=== PATIENT | female | born 1965 | race Caucasian/White ===

== ENCOUNTER 2018-07-29 21:37 | Emergency (ER) | payer OTHER, SELFPAY ==
[2018-07-29] VITALS (15 sets, daily range): BP systolic 71–133; BP diastolic 45–92; PULSE 38–75; RESP 11–27; TEMP 35.4–36.8; O2SAT 94–100; BMI 31.6
--- NOTE | 2018-07-29 21:43 | EKG12_ITS ---
Test Reason : Blood Pressure : / mmHG Vent. Rate : 055 BPM Atrial Rate : 055 BPM P-R Int : 200 ms QRS Dur : 184 ms QT Int : 522 ms P-R-T Axes : 028 113 035 degrees QTc Int : 499 ms Sinus bradycardia Right bundle branch block Left posterior fascicular block Bifascicular block Abnormal ECG Confirmed by ANNY MALIN, GLENYS ([id number]), fan mail editor RENALDO MILLER ([id number]) on 07/31/2018 3:24:10 PM Referred By: BRY Confirmed By:GLENYS MCCORMICK MD
[2018-07-29] MEDS: Ondansetron 4 MG/2 ML Vial IV (21:48)
[2018-07-29] MEDS: 0.9% Normal Saline 1,000 ML 1000 ML IV ×4 (21:48→23:24)
[2018-07-29 21:56] LABS: Bedside Glucose 145 mg/dL (70-110)
[2018-07-29] MEDS: Etomidate 20 MG/10 ML Vial IV (22:04)
[2018-07-29] MEDS: Succinylcholine Chloride 200 MG/10 ML Vial 120 MG IV (22:04)
[2018-07-29] MEDS: DOPamine IV 800 MG/250 ML IV.SOLN. 8.081 MG IV (22:06)
[2018-07-29] MEDS: Sodium Bicarbonate 8.4% 50 ML Syringe 100 MEQ IV (22:09)
[2018-07-29 22:12] LABS: Absolute Lymphocyte Count 3.56 X10^3/ul (0.83-4.51); Absolute Neutrophil Count 6.9 X10^3/uL (2.0-7.7); Basophil# 0.04 X10^3/uL; Basophil% 0.3 % (0-1); Eosinophil# 0.11 X10^3/uL; Hematocrit 41.2 % (37-47); Hemoglobin 13.6 g/dl (12.0-15.0); Lymphocyte # 3.56 X10^3/ul (4.0); Lymphocyte % 30.8 % (19-41); Mean Corpuscular Hgb 26.9 pg (27.0-32.0); Mean Corpuscular Volume 81.4 fL (81-99); Mean Platelet Vol. 9.6 fl (6.2-12.0); Monocyte# 0.96 X10^3/uL; Monocyte% 8.3 % (0-10); Neutrophil # 6.87 X10^3/uL (2.7-7.7); Neutrophil % 59.3 % (47-70); Platelet Count 397 K/mm3 (150-450); RBC Distribution Width CV 13.4 % (11.6-14.6); RBC Distribution Width SD 39.8 fl (35.1-43.9); Red Blood Count 5.06 M/mm3 (4.2-5.4); White Blood Count 11.6 K/mm3 (4.4-11.0)
[2018-07-29] MEDS: Glucagon 1 MG/ML Syringe 5 MG IV (22:14)
[2018-07-29 22:15] LABS: ALB/GLOB Ratio 0.9 RATIO (0.9-2.4); AST(SGOT) 17 U/L (15-37); Alanine Aminotransfer ALT/SGPT 19 U/L (13-56); Albumin, Serum 3.9 g/dL (3.2-5.0); Alkaline Phosphatase 95 U/L (45-117); Anion Gap 9 (5-15); BUN 11 mg/dL (7-18); BUN/Creat Ratio 13.2 RATIO (10-20); Calcium,Total 8.7 mg/dL (8.5-10.1); Chloride 102 mmol/L (98-107); Creatinine, Serum 0.84 mg/dL (0.55-1.02); EST Glomerular Filtration Rate 76 mL/min (>60); Est Glom Filt Rate - Afr Amer 91 mL/min (>60); Estimated Creatinine Clearance 68.89 ml/min; Globulin 4.3 g/dL (2.2-4.2); Glucose 149 mg/dL (74-106); Potassium 3.7 mmol/L (3.5-5.1); Protein, Total 8.2 g/dL (6.4-8.2); Sodium Level 139 mmol/L (136-145)
[2018-07-29 22:16] LABS: Differential Indicated SCAN CRITERIA MET; POSITIVE COUNT NO; POSITIVE DIFFERENTIAL NO; POSITIVE MORPHOLOGY YES
--- NOTE | 2018-07-29 22:16 | NURSING ---
PRIOR TO INTUBATION PATIENT STATED IF I DON'T MAKE IT I WANT MY ORGANS DONATED
[2018-07-29 22:30] LABS: Differential Comment SCANNED
--- NOTE | 2018-07-29 22:30 | RAD_ITS ---
STUDY: X-RAY CHEST REASON FOR EXAM: Female, 53 years old. Overdose. TECHNIQUE: Single AP portable view of the chest. COMPARISON: 10/03/17. FINDINGS: Endotracheal tube terminates 5 cm above the papi. Right IJ line terminates in the upper SVC. No pneumothorax. Nasogastric tube terminates in the upper stomach. Bilateral low lung volumes. Soft tissue density in the medial upper right hemithorax suggests atelectasis but mass is not excluded. Diffuse increased density throughout the left lung and especially in the perihilar region consistent with atelectasis or infiltrate. No gross effusions. Normal size heart. Normal visualized pulmonary arteries. Normal visualized aortic arch and descending thoracic aorta. Normal visualized thoracic spine. Normal visualized ribs, clavicles, and shoulders. There is no demonstrated abnormality of the visualized soft tissue structures of the upper abdomen. RAD/Chest 1 View (Portable) IMPRESSION: Lines and tubes in satisfactory positions. Low lung volumes and bilateral pulmonary densities. Recommend further evaluation with CT scan. Electronically Signed: Sanjay Morris MD at 22:57 EDT , Service support ,
[2018-07-29] MEDS: Calcium Chloride 1 GM/10 ML Syringe IV (22:31)
[2018-07-29] MEDS: Activated Charcoal/Sorbitol 50 GM/240 ML BOT PO (22:39)
--- NOTE | 2018-07-29 22:41 | ED.RN ---
OG AND VENT PLACEMENT CONFIRMED BY XRAY
[2018-07-29] MEDS: Glucagon 1 MG/ML Syringe 4 MG IV (22:42)
[2018-07-29] MEDS: Atropine Sulfate 1 MG/10 ML Syringe IV (22:43)
[2018-07-29 22:46] LABS: Allen Test POS; Base Excess -4 mmol/L (-2 to +2); Bicarbonate 22.6 mmol/L (22-26); Blood Gas Specimen Type ART; FI02 60; Mode A-C; O2 Delivery Device Vent; PEEP 5; PO2 72 mmHG (75-100); RR 12; SITE R Brachial; SO2 93 % (95-99); Time Given 2235; Total Carbon Dioxide 24 mmol/L; Vt 450; pH 7.31 (7.35-7.45)
[2018-07-29] MEDS: Sodium Bicarbonate 8.4% 50 ML Syringe 50 MEQ IV (22:48)
[2018-07-29] MEDS: LORazepam 2 MG/ML Syringe IV (22:50)
[2018-07-29 22:59] LABS: Amphetamine Urine VISTA NEGATIVE (<1000 ng/mL); Barbiturate Urine VISTA NEGATIVE (< 200 ng/mL); Benzodiazepine Urine VISTA NEGATIVE (< 200 ng/mL); Cocaine Urine VISTA NEGATIVE (< 300 ng/mL); Ecstacy Urine VISTA POSITIVE (< 500 ng/mL); Methadone Urine VISTA NEGATIVE (< 300 ng/mL); PCP Urine VISTA NEGATIVE (< 25 ng/mL); THC Urine VISTA NEGATIVE (< 50 ng/mL); Vista UDS pH Range 6
[2018-07-29 23:03] LABS: Acetaminophen (Tylenol) Level < 2.0 ug/mL (10.0-30.0); Alcohol, Blood (Medical)-Serum < 3.0 mg/dL; Salicylate < 1.7 mg/dL (2.8-20.0)
[2018-07-29] MEDS: Dextrose 10%-Water 250 ML 10 ML IV (23:07)
--- NOTE | 2018-07-29 23:18 | NURSING ---
PATIENT IS CURRENTLY PACING AT [address] GEORGE.
--- NOTE | 2018-07-29 23:22 | NURSING ---
EPI INCREASED TO 5 MCG PER MIN THEN INCREASED TO 10 MCG/MIN PER DR. LONDONO.
[2018-07-29] MEDS: 0.9% Normal Saline 1,000 ML 999 ML IV ×2 (23:25→23:36)
--- NOTE | 2018-07-29 23:30 | ED.RN ---
PATIENT IS CURRENTLY NOT PACING PER DR. LONDONO REQUEST. PULSES ARE STILL PALPABLE IN THE WRIST AND GROIN.
--- NOTE | 2018-07-29 23:32 | ED.RN ---
WE WENT TO GET FAMILY THREE TIMES AND THEY WERE NOT IN THE WAITING ROOM.
--- NOTE | 2018-07-29 23:44 | NURSING ---
ANOTHER BLANKET APPLIED WITH THE BEAR HUGGER. TEMPERATURE 96.1
--- NOTE | 2018-07-29 23:52 | ED.RN ---
DR. LONDONO IS CURRENTLY AT THE BEDSIDE TALKING TO HER ABOUT TRANSFER. [facility] WONT TAKE HER SO WANTS HER TO GO TO [facility].
[2018-07-30] VITALS (11 sets, daily range): BP systolic 102–120; BP diastolic 68–83; PULSE 62–70; RESP 12–24; TEMP 35.6–37.2; O2SAT 97–100
--- NOTE | 2018-07-30 00:25 | ED.DCSUM_ITS ---
- ER Visit Summary Date of Service: 07/30/18 Chief Complaint: Overdose History of Present Illness: The patient is a [address] Bates. Patient reports that she is feeling depressed because her children are leaving the home and that impulsively she overdosed on propranolol. She states that she took 40-50 20 mg pills approximately 20 minutes ago. She does admit that this was a suicide attempt. Review of systems: General: No fever, chills, cold sweats. Cardiovascular: No chest pain, palpitations. Respiratory: No cough, shortness of breath, dyspnea on exertion. Gastrointestinal: No abdominal pain, nausea, vomiting, diarrhea, melena, or hematochezia. Genitourinary: No dysuria, frequency, hematuria. Skin: No rash. Neuro: No headache, numbness, weakness. Physical Examination: Vitals: 98.2, 129/87, 75, 18, 96% on room air which is not hypoxic. General: Well-nourished and well-developed. Head: Normocephalic atraumatic. Neck: Supple, no lymphadenopathy. No JVD. Nontender. Cardiovascular: Regular rate and rhythm. No murmurs. Respiratory: No respiratory distress. Clear to auscultation bilaterally. Abdominal: Soft, nontender, nondistended, normal bowel sounds. No guarding, rebound, or peritoneal signs. Back: Nontender. Extremities: Nontender, no edema. Skin: Normal color, no rash. Neurologic: Lethargic, but answers questions appropriately. Mental status exam: Patient appears their stated age. Good posture and grooming. Good eye contact. Normal rate, volume, and latency of speech. No homicidal ideation. No auditory or visual hallucinations. Flow of thought is logical. Insight and judgment is fair. Test Results: EKG is sinus bradycardia at 54 with a right bundle branch block and left posterior fascicular block. Her QRS is 184. QTc is 499. CBC is more for a white count of 11.6. Chem-7 is more for glucose 149. LFTs marked for globulin of 4.3. Tox screen shows methamphetamines. ABG shows a pH of 7.31 with a bicarb of 22.6, PCO2 of 45, and PO2 of 72 on 60% FiO2. Chest x-ray shows the ET tube to be 5 7 m above the papi. The right IJ is in place without pneumothorax. Emergency Department Course and Treatment: Shortly after arrival in the emergency department the patient's vital signs began to deteriorate. She became more lethargic. I intubated her without difficulty. She did not become hypoxic during this. She had a right internal jugular central line placed without difficulty. Patient was given etomidate and succinylcholine for the intubation. She was given atropine, dopamine, epinephrine, calcium chloride, glucagon, sodium bicarb for hypotension and bradycardia. She was started on an insulin drip and D10. All of the glucagon in the hospital has been used. We were unable to start her on a glucagon drip. She was given 1 dose of ketamine IV as she was coughing against the vent. She has not required any further sedation. She was given charcoal down the NG tube. Currently on an epi drip at 10 mcg/min and a dopamine drip at 15 mcg/min her heart rate is in the 60s, although it still appears to be third-degree block. Her blood pressure is in the low 100s. Treatment Plan: Patient was discussed with Dr. Torres, Dr. Oliver, and Dr. Calvin. At this time it is felt that she would best be served by transfer to a tertiary care center. The patient has alt care. She was discussed with the ICU at [facility] and they asked that she be transferred to a larger hospital. I discussed this with her and he has chosen [facility]. She was discussed with the ICU doctor there and is been accepted. Disposition: Transferred in critical condition Impression: 1. Propranolol overdose. 2. Respiratory failure. 3. Intubation by ED physician. 4. Right IJ central line by ED physician. 5. Critical care time 120 minutes. Procedure: The patient was prepped and draped in the usual sterile fashion. I wore a cap, gown, and mask. The right IJ was accessed under direct visualization with the site right. The vessel was accessed on the first attempt. The central line was then placed with Seldinger technique. Normal blood return and flush in all 3 ports. The patient tolerated it well. This note was generated with [employer] dictation software. It may contain incorrect words, spelling, and punctuation that were not noted in review of the chart prior to signing ED Disposition - Plan for ED Patient: Chief Complaint: Overdose Referrals: Irma Bates MD [Primary Care Provider] -
--- NOTE | 2018-07-30 00:27 | ED.RN ---
PATIENT ACCEPTED TO THE [place] [facility] AND DR. LONDONO LET HER KNOW.
--- NOTE | 2018-07-30 00:29 | ED.RN ---
DR. LONDONO MADE AWARE THAT HER BG IS NOW 127, DEXTROSE TITRATED BACK UP TO 10 ML/HR .
[2018-07-30 00:31] LABS: Bedside Glucose 221 mg/dL (70-110)
[2018-07-30 00:31] LABS: Bedside Glucose 153 mg/dL (70-110)
[2018-07-30 00:31] LABS: Bedside Glucose 208 mg/dL (70-110)
--- NOTE | 2018-07-30 00:36 | NURSING ---
WAS TOLD TO CHECK WITH LOCAL SQUADS OR MOBILE ICU'S WHOEVER CAN TAKE THE PATIENT ON THE MEDS. ASKED ABOUT FLYING AND WAS ASKED TO CHECK GROUND [facility] FIRST. CALLED [facility] AND THEY CAN TAKE MEDS THAT ARE INFUSING JUST NEED 3RD PERSON FOR VENT.
--- NOTE | 2018-07-30 00:53 | ED.RN ---
PATIENT WAS STARTING TO THRASH AROUND SO DR. LONDONO ORDERED KETAMINE 172 MG IV X1 WHICH WAS GIVEN. THE BEAR HUGGER WAS TURNED OFF BECAUSE HER TEMPERATURE IS 97.4.
[2018-07-30] MEDS: LORazepam 2 MG/ML Syringe IV (01:13)
[2018-07-30] MEDS: Vecuronium Bromide 10 MG/10 ML Vial IV (01:13)
[2018-07-30] MEDS: HYDROmorphone 1 MG/ML Syringe 2 MG IV (01:16)
--- NOTE | 2018-07-30 01:28 | NURSING ---
DR. LONDONO MADE AWARE OF PATIENT'S GLUCOSE OF 53. ORDER TO INCREASE DEXTROSE 10 TO 40 ML'S/ HR. THIS NURSE INITIATED THIS. CHAUNCEY HENAO RN IS HERE WITH [facility] AND IS THE MEDIC THAT IS GOING WITH THEM TO RUN THE PATIENT TO [place] [facility].
--- NOTE | 2018-07-30 01:54 | ED.RN ---
PATIENT LEFT WITH [facility] WITH CHAUNCEY HENAO RN/MEDIC TRAVELING WITH THEM. REPORT GIVEN TO [facility].
[2018-07-30 01:56] LABS: Bedside Glucose 127 mg/dL (70-110)
[2018-07-30 01:56] LABS: Bedside Glucose 53 mg/dL (70-110)
== END 2018-07-30 01:45 | disposition short-term general hospital (02) ==
LOC: ED 22:35
PROVIDERS: Emergency Provider Emergency Medicine; Family Provider Internal Medicine; PCP Internal Medicine
DX: T44.7X2A Poisoning by beta-adrenoreceptor antagonists, intentional self-harm, initial encounter (principal); J96.91 Respiratory failure, unspecified with hypoxia; Y92.9 Unspecified place or not applicable; Z79.899 Other long term (current) drug therapy; I45.2 Bifascicular block; F32.9 Major depressive disorder, single episode, unspecified; F41.9 Anxiety disorder, unspecified; Z98.84 Bariatric surgery status; R00.1 Bradycardia, unspecified; I95.9 Hypotension, unspecified
CPT/HCPCS: 36556; 31500; 36600; 51702; 71045; 80053; 80307; 80320; 80329; 82803; 82962; 85025; 93005; 94002; 94003; 96361; 96365; 96366; 96375; 96376; 99251; 99285; J7030; J7050; A4216; C1751; G0463; G0480; J1610; J2405

== ENCOUNTER → 2019-04-03 08:37 | Outpatient (CLI) | payer OTHER, SELFPAY ==
[2019-04-03 10:20] LABS: Erythrocyte Sedimentation Rate 10 mm/hr (0-30)
[2019-04-03 10:22] LABS: Hematocrit 37.8 % (37-47); Hemoglobin 12.6 g/dl (12.0-15.0); Mean Corp Hgb Conc 33.3 g/gl (32-36); Mean Corpuscular Hgb 26.3 pg (27.0-32.0); Mean Corpuscular Volume 78.8 fL (81-99); Mean Platelet Vol. 10.7 fl (6.2-12.0); Platelet Count 289 K/mm3 (150-450); RBC Distribution Width CV 13.6 % (11.6-14.6); RBC Distribution Width SD 38.6 fl (35.1-43.9); Scan Indicated on CBC? Y/N NO; White Blood Count 6.8 K/mm3 (4.4-11.0)
[2019-04-03 10:56] LABS: Hemoglobin A1c 5.3 % (4.2-6.3)
[2019-04-03 10:58] LABS: Vitamin B12 271 pg/mL (211-911); Vitamin D,25 Hydroxy 19.8 ng/mL (29.95-100.01)
[2019-04-03 11:00] LABS: ALB/GLOB Ratio 0.9 RATIO (0.9-2.4); AST(SGOT) 21 U/L (15-37); Alanine Aminotransfer ALT/SGPT 17 U/L (13-56); Albumin, Serum 3.5 g/dL (3.2-5.0); Alkaline Phosphatase 79 U/L (45-117); Anion Gap 7 (5-15); BUN 9 mg/dL (7-18); BUN/Creat Ratio 16.9 RATIO (10-20); Calcium,Total 8.7 mg/dL (8.5-10.1); Chloride 108 mmol/L (98-107); Creatinine, Serum 0.53 mg/dL (0.55-1.02); EST Glomerular Filtration Rate 126 mL/min (>60); Est Glom Filt Rate - Afr Amer 153 mL/min (>60); Globulin 3.9 g/dL (2.2-4.2); Glucose 82 mg/dL (74-106); Potassium 3.7 mmol/L (3.5-5.1); Protein, Total 7.4 g/dL (6.4-8.2); Sodium Level 141 mmol/L (136-145); Thyroid Stim Hormone (TSH) 1.84 uIU/mL (0.358-3.74)
== END ==
PROVIDERS: Family Provider Internal Medicine; PCP Internal Medicine; Referring Provider Clinical Nurse Specialist; Visit Provider Clinical Nurse Specialist
DX: E55.9 Vitamin D deficiency, unspecified (principal); R20.2 Paresthesia of skin; R20.0 Anesthesia of skin; R73.09 Other abnormal glucose; M25.649 Stiffness of unspecified hand, not elsewhere classified
CPT/HCPCS: 36415; 80053; 82306; 82607; 83036; 84443; 85027; 85652

== ENCOUNTER → 2019-07-11 14:49 | Outpatient (CLI) | payer OTHER, SELFPAY ==
[2019-07-11 16:21] LABS: Hematocrit 40.1 % (37-47); Mean Corp Hgb Conc 32.4 g/dL (32-36); Mean Corpuscular Hgb 26.3 pg (27.0-32.0); Mean Platelet Vol. 10.5 fl (6.2-12.0); Platelet Count 315 K/mm3 (150-450); RBC Distribution Width CV 13.6 % (11.6-14.6); RBC Distribution Width SD 39.6 fl (35.1-43.9); Red Blood Count 4.95 M/mm3 (4.2-5.4); White Blood Count 7.9 K/mm3 (4.4-11.0)
[2019-07-11 16:44] LABS: Erythrocyte Sedimentation Rate 18 mm/hr (0-30)
[2019-07-11 17:16] LABS: Vitamin D,25 Hydroxy 62.8 ng/mL (29.95-100.01)
[2019-07-11 17:23] LABS: ALB/GLOB Ratio 0.9 RATIO (0.9-2.4); AST(SGOT) 38 U/L (15-37); Alanine Aminotransfer ALT/SGPT 36 U/L (13-56); Albumin, Serum 3.7 g/dL (3.2-5.0); Alkaline Phosphatase 84 U/L (45-117); Anion Gap 8 (5-15); BUN 7 mg/dL (7-18); Calcium,Total 9.1 mg/dL (8.5-10.1); Chloride 107 mmol/L (98-107); Creatinine, Serum 0.64 mg/dL (0.55-1.02); EST Glomerular Filtration Rate 103 mL/min (>60); Est Glom Filt Rate - Afr Amer 125 mL/min (>60); Globulin 4.2 g/dL (2.2-4.2); Glucose 81 mg/dL (74-106); Potassium 3.6 mmol/L (3.5-5.1); Protein, Total 7.9 g/dL (6.4-8.2); Rheumatoid Factor < 10.0 IU/mL (<15); Sodium Level 143 mmol/L (136-145)
== END ==
PROVIDERS: Family Provider Internal Medicine; PCP Internal Medicine; Referring Provider Internal Medicine; Visit Provider Internal Medicine
DX: Z00.00 Encounter for general adult medical examination without abnormal findings (principal); H04.123 Dry eye syndrome of bilateral lacrimal glands; M19.049 Primary osteoarthritis, unspecified hand; Z79.899 Other long term (current) drug therapy
CPT/HCPCS: 36415; 80053; 82306; 85027; 85652; 86038; 86140; 86235; 86431

== ENCOUNTER → 2020-01-25 16:43 | Outpatient (CLI) | payer OTHER, SELFPAY ==
--- NOTE | 2020-01-25 16:51 | MRI_ITS ---
STUDY: MRI RIGHT SHOULDER REASON FOR EXAM: Female, 54 years old. RIGHT shoulder pain s/p fall, painful ROM TECHNIQUE: Standardized fat and water weighted pulse sequences were obtained in all 3 orthogonal planes. COMPARISON: None. FINDINGS: Thickening of the posterior fibers of the supraspinatus tendon with signal abnormality, consistent with tendinosis. No high-grade tear. Thickening of the infraspinatus tendon with signal abnormality, consistent with tendinosis. No high-grade tear. Normal subscapularis tendon. Normal teres minor tendon. Proximal muscles of the rotator cuff are intact. There is no joint effusion. Marrow signal shows no fracture, bone contusion, or osteonecrosis. Thickening and signal abnormality in the long head of the biceps tendon, involving the proximal tendon and rotator interval. Findings are consistent with tendinosis. No high-grade tear. Normal labrum. Moderate acromioclavicular arthrosis with undersurface spurring. There is a Type II morphology (curved), with a neutral orientation. There is no subacromial-subdeltoid bursal fluid. Normal visualized coracohumeral and coracoacromial ligaments. MRI/Upper Ext Joint Only(Routine) IMPRESSION: 1. Supraspinatus and infraspinatus tendinosis. 2. Biceps tendinosis. 3. Acromioclavicular arthrosis. Electronically Signed: Spring Avalos MD at 18:36 EDT Tel , Service support ,
== END ==
PROVIDERS: PCP Internal Medicine; Referring Provider Family Medicine; Visit Provider Family Medicine
DX: S43.401A Unspecified sprain of right shoulder joint, initial encounter (principal); S80.01XA Contusion of right knee, initial encounter
CPT/HCPCS: 73221

== ENCOUNTER → 2020-03-05 | Outpatient (CLI) | payer OTHER, SELFPAY | END | disposition home or self-care (01) | LOC: LABSPEC 12:21 | PROVIDERS: PCP Internal Medicine | DX: Z20.828 Contact with and (suspected) exposure to other viral communicable diseases (principal) | CPT/HCPCS: 87635; G2023; U0004 ==

== ENCOUNTER 2020-04-23 10:46 | Emergency (ER) | payer OTHER, SELFPAY ==
[2020-04-23 10:48] VITALS: BP 132/94; PULSE 79; RESP 16; TEMP 36.2; O2SAT 95; BMI 33.8
--- NOTE | 2020-04-23 11:01 | CT_ITS ---
STUDY: CT ABDOMEN AND PELVIS WITHOUT CONTRAST REASON FOR EXAM: Female, 54 years old. PT STATED BILATERAL LOW BACK PAIN RADIATION DOSAGE (If Supplied By Facility): CTDIvol = ( 18.17 ) mGy, DLP = ( 935.12 ) mGycm TECHNIQUE: Transaxial images were obtained from the dome of the diaphragm to the symphysis pubis without oral contrast, and without intravenous contrast. Sagittal and coronal images were reconstructed. Individualized dose optimization techniques were used for this CT. COMPARISON: None. FINDINGS: The visualized lung bases are unremarkable. The visualized portions of the heart are within normal limits. There is enlarged liver with decreased attenuation of the liver consistent with steatosis. There is a 3 cm hypodense lesion at the right lobe of the liver (axial image #61 series 2) There are multiple gallstones. Normal spleen. Normal pancreas. Normal bilateral adrenal glands. There are 2 right kidney cysts measuring up to 5 cm. Normal left kidney. There is sleeve gastrostomy Normal small intestine. There are multiple colonic diverticula consistent with diverticulosis. The appendix is visualized and appears normal. Normal abdominal aorta. Normal inferior vena cava. Normal retroperitoneum. Normal urinary bladder. Normal abdominal wall. There are diffuse degenerative changes of the visualized lumbar spine. CT/Abdomen/Pelvis without Cont IMPRESSION: Hepatomegaly. Cholelithiasis. Right kidney cysts. Liver cyst. Comparison with prior examinations if available or further evaluation with renal protocol CT is recommended. Electronically Signed: Francisco Francisco MD at 12:24 EDT Tel , Service support ,
[2020-04-23] MEDS: Ondansetron 4 MG/2 ML Vial IV (11:36)
[2020-04-23] MEDS: Ketorolac 30 MG/ML Syringe IV (11:36)
[2020-04-23] MEDS: 0.9% Normal Saline 1,000 ML 250 ML IV (11:36)
[2020-04-23] MEDS: Morphine 4 MG/ML Syringe IV (11:36)
[2020-04-23 11:46] LABS: Absolute Lymphocyte Count 2.42 X10^3/uL (0.83-4.51); Absolute Neutrophil Count 3.5 X10^3/uL (2.0-7.7); Basophil# 0.03 X10^3/uL; Basophil% 0.4 % (0-1); Eosinophil# 0.16 X10^3/uL; Eosinophils% 2.4 % (0-5); Hematocrit 39.9 % (37-47); Hemoglobin 12.9 g/dL (12.0-15.0); Lymphocyte # 2.42 X10^3/ul (4.0); Lymphocyte % 36.2 % (19-41); Mean Corp Hgb Conc 32.3 g/dL (32-36); Mean Corpuscular Hgb 26.9 pg (27.0-32.0); Mean Corpuscular Volume 83.3 fL (81-99); Mean Platelet Vol. 10.2 fl (6.2-12.0); Monocyte# 0.54 X10^3/uL; Monocyte% 8.1 % (0-10); NRBC Flagged by Analyzer 0 % (0-5); Neutrophil # 3.51 X10^3/uL (2.7-7.7); Neutrophil % 52.6 % (47-70); Platelet Count 293 K/mm3 (150-450); RBC Distribution Width CV 12.9 % (11.6-14.6); RBC Distribution Width SD 38.7 fl (35.1-43.9); Red Blood Count 4.79 M/mm3 (4.2-5.4); White Blood Count 6.7 K/mm3 (4.4-11.0)
[2020-04-23 12:01] LABS: Anion Gap 5 (5-15); BUN 12 mg/dL (7-18); Calcium,Total 9.2 mg/dL (8.5-10.1); Chloride 107 mmol/L (98-107); Creatinine, Serum 0.63 mg/dL (0.55-1.02); EST Glomerular Filtration Rate 104 mL/min (>60); Est Glom Filt Rate - Afr Amer 126 mL/min (>60); Estimated Creatinine Clearance 90.79 ml/min; Glucose 87 mg/dL (74-106); Potassium 3.9 mmol/L (3.5-5.1); Sodium Level 140 mmol/L (136-145)
--- NOTE | 2020-04-23 12:07 | ED.DCSUM_ITS ---
- ER Visit Summary Date of Service: 04/23/20 Chief Complaint: Back pain History of Present Illness: The patient is a [address] Bates. She reports she has low back pain that began yesterday. It was abrupt onset. She describes as a sharp, aching pain. Is 10 out of 10 in severity. Is worsened by sitting and relieved by standing. She denies any associated nausea, vomiting, or diarrhea. Her last bowel was yesterday. Normal hematochezia. No dysuria frequency. Patient denies any recent trauma. No fall, MVA, or change in activity. There is no radiation to her legs. No numbness, tingling, or weakness in her legs. No problems with her bowels or bladder. No groin numbness. She denies any dysuria or frequency. She has never had anything like this before. She was seen at urgent care and sent to the emergency department due to the concern for a kidney stone. Physical Examination: Vitals: Stable. Afebrile. General: A&O x 3. NAD. Cardiovascular exam: Regular rate and rhythm, no murmur, rub or gallop. Respiratory exam: Clear to auscultation bilaterally. No wheezes or stridor. Abdominal exam: Soft, nontender, nondistended, normal bowel sounds. No peritoneal signs. Back: Diffuse moderate tenderness to palpation over the lumbar spine and the paraspinous musculature in the lumbar region. No point tenderness. Negative straight leg bilaterally. 5/5 DF, PF, EHL bilaterally. Normal sensation to light touch throughout. Extremity: No clubbing, cyanosis, or edema. Test Results: CBC is normal. Chem-7 is normal. Urinalysis shows no evidence of infection. Clinical Impression(s) from Imaging Studies Abdomen/Pelvis CT 04/23/20 11:01 IMPRESSION: Hepatomegaly. Cholelithiasis. Right kidney cysts. Liver cyst. Comparison with prior examinations if available or further evaluation with renal protocol CT is recommended. Electronically Signed: Francisco Francisco MD at 12:24 EDT Tel , Service support , Emergency Department Course and Treatment: Patient had an IV placed. She is given Toradol, morphine, and Zofran IV. She is resting more comfortably. Treatment Plan: Patient will be discharged naproxen and Grafton. Instructed to follow-up with her primary care physician in 3 to 5 days if not improving. Return to the emergency department for any worsening symptoms. Disposition: To home in improved and stable condition. Impression: 1. Low back pain, acute. This note was generated with [employer] dictation software. It may contain incorrect words, spelling, and punctuation that were not noted in review of the chart prior to signing ED Disposition - Plan for ED Patient: Instructions: ED Back Pain Acute or Chronic Prescriptions: Naproxen [Naprosyn] 500 mg PO BID #14 tab Prescription Printed Hydrocodone Bitart/Apap 5-325 [Grafton 5MG-325MG] 1 tab PO Q4H PRN PRN 2 Days #10 tab PRN Reason: Pain Prescription Printed Referrals: Irma Bates MD [Primary Care Provider] - 3-5 Days if not improving
[2020-04-23 12:39] LABS: Bacteria 0 SEEN /hpf (None Seen); Red Blood Cells-Urine 0 SEEN /hpf (0-5)
[2020-04-23 12:43] LABS: Color, Urine Yellow (Yellow); Glucose, Dipstick Normal (Normal); Ketone-Dipstick 5 mg/dl (Negative); Leukocyte Esterase-Dipstick 25 /ul (Negative); Nitrite-Dipstick Negative (Negative); Occult Blood-Urine Negative /ul (Negative); Protein-Dipstick 30 mg/dl (Negative); Specific Gravity, Urine 1.025 (1.002-1.030); Urine Bilirubin Dipstick Negative (Negative); Urine Clarity Sl. Cloudy (Clear); Urine Urobilinogen 1 mg/dl (Normal)
[2020-04-23 12:46] VITALS: BP 106/75; PULSE 75; RESP 18; O2SAT 95
[2020-04-23 12:53] LABS: Mucous, Urine 3+ /hpf (<or=2+); Squamous Epithelial Cells - UA 0-5 SEEN /hpf (5-10); White Blood Cells 0-5 SEEN /hpf (0-5)
[2020-04-23 14:02] VITALS: BP 102/63; PULSE 70; RESP 18; O2SAT 95
== END 2020-04-23 14:37 | disposition home or self-care (01) ==
LOC: ED 12:16
PROVIDERS: Emergency Provider Emergency Medicine; PCP Internal Medicine
DX: M54.5 Low back pain (principal)
CPT/HCPCS: 74176; 80048; 81001; 85025; 96361; 96374; 96375; 99283; J7030; A4216; J2405

== ENCOUNTER → 2020-05-07 12:32 | Outpatient (CLI) | payer OTHER, SELFPAY ==
[2020-04-23 10:48] VITALS: BMI 33.8
--- NOTE | 2020-05-07 12:43 | MRI_ITS ---
STUDY: MRI LUMBAR SPINE WITHOUT CONTRAST REASON FOR EXAM: Female, 54 years old. stenosis, radiculopathy -- pain low back and left leg, fall but not sure if related TECHNIQUE: Standardized fat and water weighted pulse sequences were obtained in the sagittal and axial planes. COMPARISON: None FINDINGS: T12-L1: Normal endplates. Normal disc height, hydration and morphology. Normal bilateral facet joints. Normal central canal and bilateral lateral recesses. Normal bilateral intervertebral neural foramina. Normal lumbar lordosis. There is no substantial scoliosis. Normal conus medullaris that terminates at the L1/L2. L1-2: Normal endplates. Normal disc height, hydration and morphology. Normal bilateral facet joints. Normal central canal and bilateral lateral recesses. Normal bilateral intervertebral neural foramina. L2-3: Normal endplates. Normal disc height, hydration and morphology. Normal bilateral facet joints. Normal central canal and bilateral lateral recesses. Normal bilateral intervertebral neural foramina. L3-4: Normal endplates. Normal disc height, hydration and morphology. Normal bilateral facet joints. Normal central canal and bilateral lateral recesses. Normal bilateral intervertebral neural foramina. L4-5: Normal endplates. Normal disc height, hydration and morphology. Normal bilateral facet joints. Normal central canal and bilateral lateral recesses. Normal bilateral intervertebral neural foramina. L5-S1: Normal endplates. Normal disc height, hydration and morphology. Normal bilateral facet joints. Normal central canal and bilateral lateral recesses. Normal bilateral intervertebral neural foramina. Normal visualized sacral ala. Multiple right renal cysts. Gallstones in the dependent portion the gallbladder consistent cholelithiasis. MRI/Spine Lumbar (Routine) IMPRESSION: Normal unenhanced MR examination of the lumbar spine. Electronically Signed: Phill Maxwell MD at 14:09 EDT Tel , Service support ,
--- NOTE | 2020-05-07 12:55 | RAD_ITS ---
STUDY: X-RAY - LEFT WRIST REASON FOR EXAM: Female, 54 years old. PAIN, NUMBNESS AND TINGLING IN BOTH HANDS AND BOTH WRISTS FOR ABOUT 2 YEARS. NO KNOWN INJURY. TECHNIQUE: 3 view(s) of the wrist were obtained. COMPARISON: None. FINDINGS: Normal visualized distal radius and ulna. Normal radiocarpal articulation. Normal distal radioulnar articulation. Normal carpal bones. Normal carpal articulations. Normal carpometacarpal articulation of the thumb. Normal second through fifth carpometacarpal articulations. Normal visualized metacarpal bones. The soft tissue structures are unremarkable. RAD/Wrist min 3 Views IMPRESSION: Normal x-ray examination of the wrist. Electronically Signed: Dakotah Moss, at 15:20 EDT , Service support ,
--- NOTE | 2020-05-07 12:55 | RAD_ITS ---
STUDY: X-RAY - RIGHT HAND REASON FOR EXAM: Female, 54 years old. PAIN, NUMBNESS AND TINGLING IN BOTH HANDS AND BOTH WRISTS FOR ABOUT 2 YEARS. NO KNOWN INJURY. TECHNIQUE: 3 view(s) of the hand. COMPARISON: None. FINDINGS: Normal radiocarpal articulation. Normal distal radioulnar joint. Normal visualized carpal bones. Normal carpal articulations Normal carpometacarpal articulation of the thumb. Normal second through fifth carpometacarpal joints. Normal metacarpi. Normal metacarpophalangeal joint of the thumb. Normal interphalangeal joint of the thumb. Normal proximal and distal phalanges of the thumb. Normal metacarpophalangeal joints of the second through fifth fingers. Normal proximal and distal interphalangeal joints of the second through fifth fingers. Normal phalanges of the second through fifth fingers. Mild soft tissue swelling of the digits. RAD/Hand Min 3 Views IMPRESSION: Mild soft tissue swelling of the digits. Electronically Signed: Dakotah Moss, at 15:19 EDT , Service support ,
--- NOTE | 2020-05-07 12:55 | RAD_ITS ---
STUDY: X-RAY - RIGHT WRIST REASON FOR EXAM: Female, 54 years old. PAIN, NUMBNESS AND TINGLING IN BOTH HANDS AND BOTH WRISTS FOR ABOUT 2 YEARS. NO KNOWN INJURY. TECHNIQUE: 3 view(s) of the wrist were obtained. COMPARISON: None. FINDINGS: Normal visualized distal radius and ulna. Normal radiocarpal articulation. Normal distal radioulnar articulation. Normal carpal bones. Normal carpal articulations. Normal carpometacarpal articulation of the thumb. Normal second through fifth carpometacarpal articulations. Normal visualized metacarpal bones. The soft tissue structures are unremarkable. RAD/Wrist min 3 Views IMPRESSION: Normal x-ray examination of the wrist. Electronically Signed: Dakotah Moss, at 15:18 EDT , Service support ,
--- NOTE | 2020-05-07 13:00 | RAD_ITS ---
STUDY: X-RAY - LEFT HAND REASON FOR EXAM: Female, 54 years old. PAIN, NUMBNESS AND TINGLING IN BOTH HANDS AND BOTH WRISTS FOR ABOUT 2 YEARS. NO KNOWN INJURY. TECHNIQUE: 3 view(s) of the hand. COMPARISON: None. FINDINGS: Normal radiocarpal articulation. Normal distal radioulnar joint. Normal visualized carpal bones. Normal carpal articulations Normal carpometacarpal articulation of the thumb. Normal second through fifth carpometacarpal joints. Normal metacarpi. Normal metacarpophalangeal joint of the thumb. Normal interphalangeal joint of the thumb. Normal proximal and distal phalanges of the thumb. Normal metacarpophalangeal joints of the second through fifth fingers. Normal proximal and distal interphalangeal joints of the second through fifth fingers. Normal phalanges of the second through fifth fingers. The soft tissue structures are unremarkable. RAD/Hand Min 3 Views IMPRESSION: Normal x-ray examination of the hand. Electronically Signed: Dakotah Moss, at 15:18 EDT , Service support ,
[2020-05-07 13:27] LABS: Erythrocyte Sedimentation Rate 19 mm/hr (0-30)
[2020-05-08 17:44] LABS: RNP Ab <0.2 AI (0.0-0.9)
[2020-05-08 18:20] LABS: Smith Ab <0.2 AI (0.0-0.9)
[2020-05-09 03:06] LABS: PROEL- Albumin 3.4 g/dL (2.9-4.4); PROEL- Alpha-1 Globulin 0.2 g/dL (0.0-0.4); PROEL- Alpha-2 Globulin 0.8 g/dL (0.4-1.0); PROEL- Beta Globulin 1.3 g/dL (0.7-1.3); PROEL- Gamma Globulin 1.1 g/dL (0.4-1.8); PROEL- Globulin, Total 3.4 g/dL (2.2-3.9); PROEL- TOTAL PROTEIN 6.8 g/dL (6.0-8.5)
[2020-05-09 21:19] LABS: CCP IgG Antibodies 2 units (0-19)
== END ==
LOC: MRI 12:36
PROVIDERS: PCP Internal Medicine; Referring Provider Internal Medicine; Visit Provider Internal Medicine
DX: M19.041 Primary osteoarthritis, right hand (principal); M19.042 Primary osteoarthritis, left hand; M43.16 Spondylolisthesis, lumbar region; M54.16 Radiculopathy, lumbar region; M48.061 Spinal stenosis, lumbar region without neurogenic claudication
CPT/HCPCS: 36415; 72148; 73110; 73130; 84165; 85652; 86140; 86200; 86235

== ENCOUNTER → 2020-07-30 15:10 | Outpatient (CLI) | payer OTHER, SELFPAY ==
[2020-08-01 16:08] LABS: Endomysial Antibody IgA Negative (Negative)
[2020-08-01 16:30] LABS: Immunoglobulin A 340 mg/dL (87-352); t-Transglutaminase IgA <2 U/mL (0-3)
== END ==
PROVIDERS: PCP Internal Medicine; Referring Provider Internal Medicine Gastroenterology; Visit Provider Internal Medicine Gastroenterology
DX: R19.7 Diarrhea, unspecified (principal)
CPT/HCPCS: 36415; 82784; 83516; 86140; 86255

== ENCOUNTER 2020-09-09 22:32 | Emergency (ER) | payer OTHER, SELFPAY ==
[2020-09-09 22:33] VITALS: BP 158/97; PULSE 92; RESP 15; TEMP 36.3; BMI 32.4
--- NOTE | 2020-09-09 22:50 | US_ITS ---
STUDY: ABDOMINAL ULTRASOUND - RIGHT UPPER QUADRANT REASON FOR VISIT: Female, 55 years old RUQ PAIN OFF AND ON SEVERE TECHNIQUE: Ultrasound evaluation of the right upper quadrant was performed with real-time and static bañuelos-scale imaging. TECHNICAL QUALITY: Adequate. COMPARISON: CT abdomen and pelvis 04/23/2020 and abdominal ultrasound 10/03/2017 FINDINGS: Liver: The liver measures 19.7 cm. There is increased echogenicity of the liver. The bile ducts are within normal limits. There is hepatic color flow. The direction of portal flow is hepatopetal. There is no demonstrated mass lesion. 2 cysts are noted. The largest measures 2 x 2 0.8 x 1.9 cm and appears septated. This could be focal fatty sparing is noted. Gallbladder: Normal distended gallbladder. The gallbladder wall measures 2 mm. There is a positive sonographic Vicente''s sign. There is no pericholecystic fluid. There are multiple echogenic structures within the gallbladder, consistent with multiple gallstones. Common Bile Duct (C.B.D.): The common bile duct measures 5 mm. Pancreas: Tail not well-visualized. Right Kidney: Normal size of the right kidney. The right kidney measures 10.9 cm. Normal renal cortex. The right cortex measures 3.1 cm. Multiple simple cysts measuring up to 5.2 x 4.7 x 4.2 cm. There is no right hydronephrosis. US/Abdomen Limited IMPRESSION: Cholelithiasis but no definite evidence of cholecystitis. Multiple hepatic and right renal cysts. Electronically Signed: Jose Luis Rock MD at 23:45 EST , Service support ,
[2020-09-09 23:00] LABS: Absolute Lymphocyte Count 2.67 X10^3/uL (0.83-4.51); Absolute Neutrophil Count 7.3 X10^3/uL (2.0-7.7); Basophil# 0.04 X10^3/uL; Basophil% 0.4 % (0-1); Eosinophil# 0.15 X10^3/uL; Eosinophils% 1.4 % (0-5); Hematocrit 42.7 % (37-47); Hemoglobin 13.7 g/dL (12.0-15.0); Lymphocyte # 2.67 X10^3/ul (4.0); Lymphocyte % 24.6 % (19-41); Mean Corp Hgb Conc 32.1 g/dL (32-36); Mean Corpuscular Hgb 26.3 pg (27.0-32.0); Mean Corpuscular Volume 82.1 fL (81-99); Mean Platelet Vol. 10.3 fl (6.2-12.0); Monocyte# 0.65 X10^3/uL; NRBC Flagged by Analyzer 0 % (0-5); Neutrophil % 67.3 % (47-70); Platelet Count 356 K/mm3 (150-450); RBC Distribution Width CV 13.2 % (11.6-14.6); RBC Distribution Width SD 39.3 fl (35.1-43.9); White Blood Count 10.8 K/mm3 (4.4-11.0)
--- NOTE | 2020-09-09 23:00 | ED.VIS.GI ---
History of Present Illness Chief Complaint: Abd Pain Narrative: Patient presenting for evaluation secondary to abdominal pain. Patient reports that about 5 PM tonight she had an onset of abdominal pain. It is located in her right upper quadrant, patient states that it has been a continuous waxing and waning type pain with paroxysms that will go up to 10 out of 10. No exacerbating relieving factors. No fevers, she does endorse some nausea but no vomiting. No diarrhea. No change in color of her stools. Patient does state that she has a past history of gallstones. She has multiple abdominal surgeries including a gastric sleeve. Review of systems otherwise negative. Past Medical History - Allergies and Home Meds Allergies/Adverse Reactions: Allergies iodine Allergy (Verified 09/09/20 22:35) Hives erythromycin base Adverse Reaction (Verified 09/09/20 22:36) Nausea Primary Care Physician: Irma Bates MD [Primary Care Provider] - Prior records reviewed: Yes Past Medical History: - - Gallstones Surgical History: - - Gastric sleeve Smoking Status: Never smoker Alcohol: None Drugs: None Review of Systems All systems negative except as indicated General: Denies: Chills, Fever, Sweats Eyes: Denies: Visual changes - bilaterally, Diplopia ENT: Denies: Rhinorrhea, Sore throat Cardiovascular: Denies: Chest pain, Palpitations Respiratory: Denies: Dyspnea, Cough, Dyspnea on exertion Gastrointestinal: Reports: Abdominal pain, Nausea Genitourinary: Denies: Dysuria, Hematuria, Frequency Musculoskeletal: Denies: Back pain, Extremity Pain Skin: Denies: Rash, Wounds Neurological: Denies: Headache, Weakness, Numbness Physical Exam Vital Signs/Narrative: Vital Signs Temp Pulse Resp BP 09/09/20 22:33 97.3 F L 92 15 158/97 H Inital Vital Signs reviewed: Yes General: Well nourished, Well developed, Obese, No Acute Distress Head: Normocephalic, Atraumatic Eyes: Perrl, EOMI ENT: Moist mucous membranes, No rhinorrhea Neck: Supple, Nontender Cardiovascular: Regular rate, Regular rhythm, No murmurs Respiratory: No distress, CTA bilaterally, Chest nontender Abdomen: Soft, Nondistended, Normal bowel sounds, Tender, Vicente's sign Back: Nontender, Normal Inspection Extremities: Nontender, No edema Skin: Normal color, No rash Neurological: Alert, Oriented x3, Cranial nerves II-XII grossly intact, Normal Strength, Normal Sensation Psychological: Normal affect, Normal Mood Diagnostic/Tx/Re-eval Clinical Impression(s) from Imaging Studies Abdomen Ultrasound 09/09/20 22:50 IMPRESSION: Cholelithiasis but no definite evidence of cholecystitis. Multiple hepatic and right renal cysts. Electronically Signed: Jose Luis Rock MD at 23:45 EST , Service support , Laboratory Data 09/09/20 09/09/20 22:44 22:44 WBC 10.8 RBC 5.20 Hgb 13.7 Hct 42.7 MCV 82.1 MCH 26.3 L MCHC 32.1 RDW Std Deviation 39.3 RDW Coeff of Elina 13.2 Plt Count 356 MPV 10.3 Immature Gran % (Auto) 0.300 Neut % (Auto) 67.3 Lymph % (Auto) 24.6 [place] % (Auto) 6.0 Eos % (Auto) 1.4 Baso % (Auto) 0.4 Absolute Neuts (auto) 7.3 Absolute Lymphs (auto) 2.67 Nucleated RBC % 0 Sodium 142 Potassium 3.7 Chloride 107 Carbon Dioxide 29.0 Anion Gap 6 BUN 10 Creatinine 0.89 Estim Creat Clear Calc 63.51 Est GFR (MDRD) Af Amer 84 Est GFR (MDRD) Non-Af 70 BUN/Creatinine Ratio 11.2 Glucose 119 H Calcium 9.5 Total Bilirubin 0.40 AST 25 ALT 31 Alkaline Phosphatase 102 Total Protein 8.4 H Albumin 3.8 Globulin 4.6 H Albumin/Globulin Ratio 0.8 L Lipase 113 - Medical Decision Making Patient presented secondary to abdominal pain. She did localize in the right upper quadrant work-up for cholecystitis was performed. CBC chemistry hepatic and lipase found to be unremarkable. Patient had improvement of pain with administration of Toradol. Right upper quadrant ultrasound read demonstrates the patient to have some hepatic cysts as well as cholelithiasis without cholecystitis. Repeat evaluation demonstrates a nonsurgical abdomen with almost complete resolution of pain. Patient likely suffering from biliary colic at this point. This is the patient's second bout with this, I do believe that she would benefit from evaluation from the surgeon for outpatient cholecystectomy. Patient will be given a referral to general surgery on-call. Patient was discharged with a course of Toradol for pain control and instructions on signs and symptoms which to return. ED Disposition - Plan for ED Patient: Disposition: Home or Assisted Living Diagnosis: Biliary colic, Cholelithiasis Instructions: ED Gallstones with Biliary Colic Prescriptions: Ketorolac [Toradol] 10 mg PO Q6H PRN #20 tab PRN Reason: Pain 1-10 Or Fever Prescription Printed Referrals: Everton Teague MD [STAFF PHYSICIAN] - 5-7 Days
[2020-09-09 23:17] LABS: ALB/GLOB Ratio 0.8 RATIO (0.9-2.4); AST(SGOT) 25 U/L (15-37); Alanine Aminotransfer ALT/SGPT 31 U/L (13-56); Albumin, Serum 3.8 g/dL (3.2-5.0); Alkaline Phosphatase 102 U/L (45-117); Anion Gap 6 (5-15); BUN 10 mg/dL (7-18); BUN/Creat Ratio 11.2 RATIO (10-20); Calcium,Total 9.5 mg/dL (8.5-10.1); Chloride 107 mmol/L (98-107); Creatinine, Serum 0.89 mg/dL (0.55-1.02); EST Glomerular Filtration Rate 70 mL/min (>60); Est Glom Filt Rate - Afr Amer 84 mL/min (>60); Estimated Creatinine Clearance 63.51 ml/min; Globulin 4.6 g/dL (2.2-4.2); Glucose 119 mg/dL (74-106); Lipase 113 U/L (73-393); Potassium 3.7 mmol/L (3.5-5.1); Protein, Total 8.4 g/dL (6.4-8.2); Sodium Level 142 mmol/L (136-145)
[2020-09-09] MEDS: 0.9% Normal Saline 1,000 ML 1000 ML IV (23:19)
[2020-09-09] MEDS: Ketorolac 15 MG/ML Vial IV (23:19)
[2020-09-09] MEDS: Ondansetron 4 MG/2 ML Vial IV (23:19)
[2020-09-10 00:29] VITALS: BP 124/74; PULSE 92; RESP 15; O2SAT 98
== END 2020-09-10 00:31 | disposition home or self-care (01) ==
PROVIDERS: Emergency Provider Emergency Medicine; PCP Internal Medicine
DX: K80.70 Calculus of gallbladder and bile duct without cholecystitis without obstruction (principal); E66.9 Obesity, unspecified; Z68.32 Body mass index [BMI] 32.0-32.9, adult
CPT/HCPCS: 76705; 80053; 83690; 85025; 96361; 96374; 96375; 99284; J7030; A4216; J2405

== ENCOUNTER 2020-10-20 07:57 | Day surgery (SDC) | payer OTHER, SELFPAY ==
[2020-09-16 10:25] VITALS: BMI 32.4
--- NOTE | 2020-10-17 11:06 | EKG12_ITS ---
Test Reason : PRE OP Blood Pressure : / mmHG Vent. Rate : 073 BPM Atrial Rate : 073 BPM P-R Int : 168 ms QRS Dur : 084 ms QT Int : 402 ms P-R-T Axes : 049 071 079 degrees QTc Int : 442 ms Normal sinus rhythm with sinus arrhythmia Normal ECG Confirmed by VIKTOR MALIN, NAILA ([id number]), technical editor NEEMA CORTÉS ([id number]) on 10/22/2020 9:43:53 A M Referred By: Everton Teague Confirmed By:SUDHAKAR HOANG MD
[2020-10-20] VITALS (15 sets, daily range): BP systolic 121–173; BP diastolic 63–112; PULSE 62–95; RESP 16–20; TEMP 18.8–37.2; O2SAT 89–100; BMI 33.3
--- NOTE | 2020-10-20 | GALL_PTH ---
PATIENT: SULEMA HERNANDEZ [place] [facility] [id number] AGE/SX: 55/F ROOM: RE10/20/[address]: Dr. Everton Teague MD : 1965 BED: DIS: 10/20/2020 SPEC #: [id number] RECD: 10/20/20 12:57 STATUS: ROSALES REAleks #: [id number] FAISAL: 10/20/20 00:[address]: Everton Teague DEPT: SURGICAL PATHOLOGY RECD BY: Oscar Castañeda ENTERED: 10/20/20 12:57 SP TYPE: PRADIP MONCADA DR: Dr. Irma Bates MD Tissues: Gallbladder, NOS Procedures: Surgery Specimen Level III HEADER OPERATION: Laparoscopic cholecystectomy PRE-OP DIAGNOSIS: Biliary colic, cholelithiasis TISSUE SUBMITTED: Gallbladder MICROSCOPIC DIAGNOSIS Gallbladder, cholecystectomy: Moderate chronic follicular cholecystitis and cholelithiasis. SJ:lynn 10/21/20 MICROSCOPIC DESCRIPTION Slides are reviewed. GROSS DESCRIPTION Received is one container labeled with the patient's name and designated gallbladder. The specimen consists of a gallbladder measuring 8 cm in length and 3.5 cm in diameter. The external surface is pink-quijano, smooth and glistening for the most part. Focally it is granular, hemorrhagic and contains cautery artifact. The gallbladder contains hemorrhagic bile and one black stone measuring 0.5 cm in greatest dimension. A small amount of sludge material is also noted. The mucosa is bile-stained and without any mass lesions. The gallbladder wall measures up to 0.3 cm in thickness. An increased amount of subserosal fat is also noted. Also present close to the cystic duct is an ovoid, quijano nodule, a possible lymph node, measuring 2 cm in greatest dimension. [employer] sections from the gallbladder and the cystic duct including lymph node are submitted in one cassette. / SJ:lynn 10/20/20 TC:3 CPT: 89995
--- NOTE | 2020-10-20 06:00 | HP_ITS ---
Intake Vital Signs 09/16/20 Height 5 ft 5 in 09/16/20 Weight: 195 lb 09/16/20 BMI 32.4 09/16/20 BP 135/79 H 09/16/20 Blood Pressure Location Rt brachial 09/16/20 Position Sitting 09/16/20 Respiration 16 Intake Visit Reasons: GALLSTONES W/BILIARY COLIC Chief Complaint: gallstones [employer] Required: No Is patient in pain?: Yes (ruq abdomen) Allergies iodine Allergy (Verified 09/16/20 10:26) Hives erythromycin base Adverse Reaction (Verified 09/16/20 10:26) Nausea Medications Fluoxetine [Prozac] 60 mg PO DAILY 04/02/16 [History Confirmed 09/16/20] Loperamide [Imodium] 4 mg PO DAILY 04/02/16 [History Confirmed 09/16/20] Multivitamins,Therapeutic [Multivitamin] 1 tab PO DAILY 04/02/16 [History Confirmed 09/16/20] Clonidine HCl 0.1 mg PO QHS 09/09/20 [History Confirmed 09/16/20] Mirtazapine 7.5 mg PO QHS 09/09/20 [History Confirmed 09/16/20] Ketorolac [Toradol] 10 mg PO Q6H PRN #20 tab 09/10/20 [Rx Confirmed 09/16/20] PFSH Medical History (Updated 09/16/20 @ 10:23 by Leda Davis) Depression (Acute) Diarrhea (Acute) Surgical History (Updated 09/16/20 @ 10:24 by Leda Davis) S/P hysterectomy (Acute) S/P laparoscopic sleeve gastrectomy (Acute) S/P tonsillectomy (Acute) s/p a/p repair (Acute) Family History (Updated 09/16/20 @ 10:25 by Leda Davis) Father Diabetes Heart disease Hypertension Mother Kidney disease Hypertension Social History (Updated 09/17/20 @ 09:[address] Everton Teague MD) Smoking Status: Never smoker alcohol intake: never HPI HPI HPI: SULEMA HERNANDEZ, is a 55 F who presents to the office today for HPI HPI Surgical H&P: Yes HPI: SULEMA HERNANDEZ, is a 55 F who presents to the office today for Right upper quadrant pain. The patient was recently in the emergency room for right upper quadrant pain was found to have gallstones. The patient reports that she has been having this for years. She has right upper quadrant pain that radiates to the back and to the substernal region. She says this sometimes happens with food sometimes happens without food. She is not having any fevers or chills and currently has no pain today. ROS General General: No weight change or fatigue Musc Musculoskeletal: Yes arthritis Cardio Cardiovascular: No murmur, pacemaker, heart disease, atrial fibrillation, high blood pressure, heart attack, heart stent, palpitations, shortness of breat with exertion or chest pain Psych Psychiatric: Yes depression and anxiety Resp Respiratory: No shortness of breath, No sleep apnea, No cough, No COPD, No asthma, No emphysema, No wheezing Gastro Gastrointestinal: Yes abdominal pain, No nausea or vomiting, Yes diarrhea, No constipation, No blood in stool, No acid reflux, Yes hemorrhoids, No ulcers, Yes gallbladder problem, No black,tarry stools Boyd Hematologic: No blood thinners Exam Const General: cooperative Orientation: alert, oriented x3 HENMT Head: normal to inspection Ears: hearing grossly normal bilaterally Eyes General: appearance normal, both eyes and all related structures Visual Cook: normal visual cook by confrontation Neck Neck: normal visual inspection Chest Chest palpation & inspection: normal inspection of the chest Resp Effort & Inspection: normal respiratory effort Auscultation: clear to auscultation bilaterally Cardio Rate: regular rate Rhythm: regular rhythm Heart Sounds: no murmurs GI Inspection: non-distended Palpation: soft, nontender Musc Cervical Spine: normal cervical lordosis, cervical ROM normal Skin General: no rashes or lesions noted Neuro General: alert, oriented x3 Cranial Nerves: CN's II-XI intact bilaterally Cognition: normal cognition Extrem General: normal to inspection, full ROM Psych Appearance: grossly normal Affect: normal affect Assessment & Plan Problems 1. Calculus of gallbladder without cholecystitis without obstruction K80.20 Plan The patient is having right upper quadrant pain and the pain radiates to the back and epigastric region. The patient was recently seen in the emergency room and had an ultrasound which showed normal thickness of the gallbladder but it did contain gallstones. Her pain is suggestive of biliary colic. I did recommend laparoscopic cholecystectomy. I discussed the procedure in detail with the patient. I discussed the risks, benefits, and alternatives of the procedure. I discussed the risks including but not limited to bleeding, infection, injury to surrounding organs such as the liver, bile duct, bowels. I did discuss the possibility of having to convert to an open procedure as well as the possibility that if any injuries occurred this may necessitate further surgery at a tertiary care center. We discussed the current risks associated with COVID-19. While it is understood that there is a community spread of COVID-19, the risk of luna COVID-19 while at [facility] ([facility]) is very low; however, the risk cannot be completely mitigated because of the community spread of the disease. We discussed in detail the risk of exposure to and/or potential harm posed by the COVID-19 virus with having a surgery/procedure at this time versus the risk of delaying the surgery/procedure. It is not possible to know either the risk of delaying the surgery or procedure or chance of getting an infection with perfect accuracy, but a joint decision was made to proceed at this time with the scheduled surgery/procedure as indicated on the consent form. Patient was notified that we will need to comply with any screening or testing [facility] wishes to perform or that surgery may be delayed for any positive results. Everton Teague MD Pager: [facility] [address] [place] [address], [address] [place] [address] Office: Coding Level of Care Code Off vis,new,level 4 Diagnoses Calculus of gallbladder without cholecystitis without obstruction K80.20 ??Cholelithiasis location: gallbladder ??Cholecystitis presence: without cholecystitis ??Biliary obstruction: without biliary obstruction Time Spent (min) 45
[2020-10-20] MEDS: Lactated Ringers 1,000 ML 100 ML IV (08:35)
--- NOTE | 2020-10-20 09:01 | HP.PCM_ITS ---
Problem List (1) Biliary colic Status: Acute (2) Cholelithiasis Status: Acute Qualifiers: Cholelithiasis location: gallbladder Cholecystitis presence: without cholecystitis Biliary obstruction: without biliary obstruction Qualified Code(s): K80.20 - Calculus of gallbladder without cholecystitis without obstruction History of Present Illness Date of Admission: 10/20/20 SULEMA HERNANDEZ, is a 55 F who presents to the office today for Right upper quadrant pain. The patient was recently in the emergency room for right upper quadrant pain was found to have gallstones. The patient reports that she has been having this for years. She has right upper quadrant pain that radiates to the back and to the substernal region. She says this sometimes happens with food sometimes happens without food. She is not having any fevers or chills and currently has no pain today. Past Medical History Medical History: Medical History (Last Updated 09/16/20 @ 10:23 by Leda Davis) Depression F32.9 Diarrhea R19.7 Allergies iodine Allergy (Verified 10/13/20 14:36) Hives erythromycin base Adverse Reaction (Verified 10/13/20 14:36) Nausea Home Medications: Ambulatory Orders Medication Instructions Recorded Fluoxetine [Prozac] 60 mg PO DAILY 04/02/16 Loperamide [Imodium] 4 mg PO DAILY 04/02/16 Multivitamins,Therapeutic 1 tab PO DAILY 04/02/16 [Multivitamin] Clonidine HCl 0.1 mg PO QHS 09/09/20 Mirtazapine 7.5 mg PO QHS 09/09/20 Ketorolac [Toradol] 10 mg PO Q6H PRN #20 tab 09/10/20 Surgical History: Surgical History (Last Updated 09/16/20 @ 10:24 by Leda Davis) S/P hysterectomy Z90.710 S/P laparoscopic sleeve gastrectomy Z98.84 S/P tonsillectomy Z90.89 s/p a/p repair Surgical History: - - Gastric sleeve Smoking Status: Never smoker Tobacco Use: Non-smoker Review of Systems Constitutional: Denies: Anorexia, Fever HEENT: Denies: Difficulty Swallowing Cardiovascular: Denies: Chest Pain Respiratory: Denies: Cough, Shortness of Breath Gastrointestinal: Reports: Abdominal Pain. Denies: Nausea, Vomiting Musculoskeletal: Denies: Joint Tenderness Skin: Denies: Jaundice Hematologic/ Lymphatic: Denies: Anemia VTE Information - Inpt Only VTE Present on Admission: No VTE Mechan Device Prophylaxis: SCD's - Physical Exam Vitals/I&O's: Vital Signs Temp Pulse Resp BP Pulse Ox 98.8 F 66 18 135/83 H 97 10/20/20 08:24 10/20/20 08:24 10/20/20 08:24 10/20/20 08:24 10/20/20 08:24 Oxygen Delivery Method Room Air Weight: 200 lb 9.93 oz Body Mass Index (BMI) 33.3 Finger Stick Blood Glucose 53 General: Alert, Oriented x3 Lungs: Normal air movement Cardiovascular: Regular rate, Regular Rhythm Abdomen: Soft, Non Tender, Non-Distended Musculoskeletal: No Muscle Wasting Neurological: Cranial nerves II-XII grossly intact Psych/Mental Status: Normal Affect Microbiology Past 72 Hours 10/17/20 11:00 Interface Orders SARS-CoV-2 Antigen (Rapid) - Final Current Medications Cefotetan Disodium 2 gm/ (Sodium Chloride) 100 mls @ 200 mls/hr IV PREOP ONE Stop: 10/20/20 10:19 Lactated Ringer's () 1,000 mls @ 100 mls/hr IV .Q10H CHARITY Last Admin: 10/20/20 08:35 Dose: 100 mls/hr Documented by: Assessment/Plan All Active Problems (Last Updated 09/16/20 @ 10:23 by Leda Davis) Biliary colic (Acute) Cholelithiasis (Acute) 55-year-old female with cholelithiasis and biliary colic 1. I discussed laparoscopic cholecystectomy in detail with the patient. I discussed the risks, benefits, and alternatives of the procedure. I discussed the risks including but not limited to bleeding, infection, injury to surrounding organs such as the liver, bile duct, bowels. I did discuss the possibility of having to convert to an open procedure as well as the possibility that if any injuries occurred this may necessitate further surgery at a tertiary care center. Everton Teague MD Pager: [facility] [address] [place] [address], [address] [place] [address] Office:
[2020-10-20] MEDS: Cefotetan 2 GM in 0.9% NS 100 ML IV (09:23)
[2020-10-20] MEDS: Bupiv/Epi 0.25% 30 ML Vial (10:22)
--- NOTE | 2020-10-20 10:36 | OP.PCM_ITS ---
Problem List (1) Biliary colic Status: Acute (2) Cholelithiasis Status: Acute Qualifiers: Cholelithiasis location: gallbladder Cholecystitis presence: without cholecystitis Biliary obstruction: without biliary obstruction Qualified Code(s): K80.20 - Calculus of gallbladder without cholecystitis without obstruction Report of Operation Date of Procedure: 10/20/20 Pre-Operative Diagnosis: Cholelithiasis with biliary colic Post-Operative Diagnosis: Same Surgery/Procedure Performed:: Laparoscopic cholecystectomy Specimen's removed: Gallbladder and contents Description of Procedure: After obtaining informed consent patient was brought back to the operating room. General anesthesia was induced. The abdomen was prepped and draped in usual sterile fashion. A small midline incision was made superior to the umbilicus and deepened to the level of fascia. The fascia was elevated and incised. Next the peritoneum was elevated and incised in the same fashion. Finger sweep was performed and the Machado trocar was placed into the abdomen. The balloon was inflated. The abdomen was inflated to 15 mmHg. Next a camera was introduced into the abdomen and the abdomen was inspected. Next under direct visualization three 5-mm ports were placed one subxiphoid and 2 subcostal. Next the gallbladder was elevated and retracted toward the right shoulder. The peritoneum was stripped from the gallbladder. The infundibulum was located and retracted laterally. Next the triangle of Calot was dissected and the cystic duct and cystic artery were identified. Cholangiograms were not performed due to the patient's iodine allergy. Three hemolock clips were placed across the cystic duct. The cystic duct was then divided leaving 2 clips on the stump. The cystic artery was clipped and divided in the same fashion. The hook cautery was then used to take the gallbladder off of the gallbladder bed. Hemostasis was obtained. Gallbladder fossa was irrigated and no active bleeding or bile leakage was noted. Next the camera was introduced in the subxiphoid port. An Endopouch bag was placed through the umbilical port and the gallbladder was placed into it. The gallbladder was then removed through the umbilical incision. The camera was then reinserted through the umbilical port. The gallbladder fossa was inspected once more and noted to be hemostatic with no leaking bile. The abdomen was suctioned dry. The 5 mm ports were removed under direct visualization. The umbilical port was then removed and the air was removed from the abdomen. Next using an 0 Vicryl suture the umbilical fascia was closed in a [id number] fashion. The umbilical port site was irrigated local anesthetic was administered to all the incisions. All the incisions were closed with interrupted subcuticular 4-0 Monocryl sutures followed by Steri- Strips and dressings. The patient was awoken and taken to PACU in stable condition. - Admit VTE Documentation VTE Mechan Device Prophylaxis: SCD's
--- NOTE | 2020-10-20 10:42 | PCM.DC.GB ---
Discharge Diet: Light diet - advance as tolerated Discharge Activity: Return to Normal Activity, May Not Drive - for 2-3 days or while taking narcotic pain medicataions., - - Do not drive, work heavy equipment or sign legal documents for 24 hours. May shower in (days): 1 - with the bandage in place. Additional Activity Instructions:: Pain medication may cause nausea. You should typically eat light foods as you take your pain medications. Pain medication may also cause constipation. If this is a problem for you, please discuss with your doctor. Call your doctor if your incision/area has: Continuous Slow Oozing, Sudden Increased Bleeding, Increased Pain/ Swelling, Increased Redness, Foul Smelling Discharge, Fever of 101 or Higher Call your doctor if you observe: Fever of 101 or Higher Suture Line Care: Avoid Pulling/Pushing, Avoid Pinching/Bending Additional Dressing/Incision Instructions:: Leave operative bandaids on for 2 days. When you remove dressing, leave Steri-Strips on until your follow-up appointment, or until the Steri-Strips fall off on their own. Allergies/Adverse Reactions: Allergies iodine Allergy (Verified 10/13/20 14:36) Hives erythromycin base Adverse Reaction (Verified 10/13/20 14:36) Nausea Medications to take at Discharge Fluoxetine [Prozac] 60 mg PO DAILY 04/02/16 Loperamide [Imodium] 4 mg PO DAILY 04/02/16 RX: Multivitamins,Therapeutic [Multivitamin] 1 tab PO DAILY 04/02/16 RX: Clonidine HCl 0.1 mg PO QHS 09/09/20 RX: Mirtazapine 7.5 mg PO QHS 09/09/20 Ketorolac [Toradol] 10 mg PO Q6H PRN #20 tab 09/10/20 Hydrocodone/Acetaminophen [Hydrocodon-Acetaminophen 5-325] 1 - 2 tab PO Q6H PRN PRN 5 Days #30 tablet 10/20/20 The following prescriptions were given: Hydrocodone/Acetaminophen [Hydrocodon-Acetaminophen 5-325] 1 - 2 tab PO Q6H PRN PRN 5 Days #30 tablet PRN Reason: Pain Score 4-10/10 Transmission Status: Received by [facility] Orders to be completed after discharge: 12 Lead EKG [[facility]] Time Frame: 10/17/20, Facility: [facility], Location: Cardiovascular Services Primary Care Physician: Irma Bates MD [Primary Care Provider] - Test Results: Test results from this visit will be discussed in further detail at your follow-up appointment, if applicable. Please Follow Up With: Everton Teague MD When: Please call to schedule 2 week follow up appointment. [phone]
== END 2020-10-20 15:12 | disposition home or self-care (01) ==
LOC: SDC 07:58 → AC 07:59
PROVIDERS: PCP Internal Medicine; Referring Provider Surgery; Visit Provider Surgery
PROC: (CPT 47610; principal; 2020-10-20 09:30)
DX: K80.10 Calculus of gallbladder with chronic cholecystitis without obstruction (principal); F32.9 Major depressive disorder, single episode, unspecified; Z90.3 Acquired absence of stomach [part of]; Z79.1 Long term (current) use of non-steroidal anti-inflammatories (NSAID); Z20.828 Contact with and (suspected) exposure to other viral communicable diseases
CPT/HCPCS: 00790; 47562; 87426; 88304; 93005; C9803; J7120; J2405

== ENCOUNTER 2020-10-23 20:21 | Observation (INO) | payer OTHER, SELFPAY ==
[2020-10-20 08:24] VITALS: BMI 33.3
[2020-10-23 20:22] VITALS: BP 158/96; PULSE 86; RESP 18; TEMP 36.6; O2SAT 96; BMI 33.3
--- NOTE | 2020-10-23 20:39 | ED.DCSUM_ITS ---
History of Present Illness Informant: Patient Onset: Yesterday Narrative: 3 days postop laparoscopic cholecystectomy by Dr. Teague. Patient states she went home the same day was having discomfort however symptoms worsened yesterday and throughout today. No nausea or vomiting however she states she still has a scopolamine patch on. Large bowel movement yesterday positive flatus. History of gastric sleeve and hysterectomy in the past. Has been using her hydrocodone 2 tabs every 8 hours last dosing prior to arrival. No urinary symptoms. No fevers. Called on-call surgeon was told to come to the ED. Still has her appendix. Reports iodine allergy causing hives and rash, no anaph ylaxis. Has been given IV dye before. Prior similar symptoms: No <Jesús Keita - Last Filed: 10/23/20 22:09> <Gilbert Becker - Last Filed: 10/23/20 22:56> Chief Complaint: Abd Pain Past Medical History Past Medical History: - - Anxiety, depression, Surgical History: - - Gastric sleeve Smoking Status: Never smoker <Jesús Keita - Last Filed: 10/23/20 22:09> <Gilbert Becker - Last Filed: 10/23/20 22:56> - Allergies and Home Meds Allergies/Adverse Reactions: Allergies iodine Allergy (Verified 10/23/20 20:24) Hives erythromycin base Adverse Reaction (Verified 10/23/20 20:24) Nausea Primary Care Physician: Irma Bates MD [Primary Care Provider] - Review of Systems General: Denies: Chills, Fever, Sweats Eyes: Denies: Visual changes - bilaterally, Diplopia ENT: Denies: Rhinorrhea, Sore throat Cardiovascular: Denies: Chest pain, Palpitations Respiratory: Denies: Dyspnea, Cough, Dyspnea on exertion Gastrointestinal: Reports: Abdominal pain. Denies: Nausea, Vomiting, Diarrhea, Melena, Hematochezia Genitourinary: Denies: Dysuria, Hematuria, Frequency Musculoskeletal: Denies: Back pain, Extremity Pain Skin: Denies: Rash, Wounds Neurological: Denies: Headache, Weakness, Numbness <Jesús Keita - Last Filed: 10/23/20 22:09> Physical Exam Vital Signs/Narrative: Vital Signs Temp Pulse Resp BP Pulse Ox 10/23/20 20:22 97.9 F 86 18 158/96 H 96 Inital Vital Signs reviewed: Yes General: Well nourished, Well developed, - - Uncomfortable Head: Normocephalic, Atraumatic Eyes: Perrl, EOMI ENT: Moist mucous membranes, No rhinorrhea Neck: Supple, Nontender Cardiovascular: Regular rate, Regular rhythm, No murmurs Respiratory: No distress, CTA bilaterally, Chest nontender Abdomen: Soft, Nondistended, Normal bowel sounds, - - Tender palpation right upper quadrant right lower quadrant. Laparoscopic incisions with dressings clean, dry, intact. Back: Nontender, Normal Inspection Extremities: Nontender, No edema Skin: Normal color, No rash Neurological: Alert, Oriented x3, Cranial nerves II-XII grossly intact, Normal Strength, Normal Sensation Psychological: Normal affect, Normal Mood <Jesús Keita - Last Filed: 10/23/20 22:09> Vital Signs/Narrative: Vital Signs Temp Pulse Resp BP Pulse Ox 10/23/20 20:22 97.9 F 86 18 158/96 H 96 <Gilbert Becker - Last Filed: 10/23/20 22:56> Diagnostic/Tx/Re-eval Abnormal Lab Results 10/23/20 10/23/20 20:41 20:41 WBC 8.8 RBC 4.38 Hgb 11.4 L Hct 36.3 L MCV 82.9 MCH 26.0 L MCHC 31.4 L RDW Std Deviation 40.2 RDW Coeff of Elina 13.2 Plt Count 289 MPV 10.2 Immature Gran % (Auto) 0.200 Neut % (Auto) 58.3 Lymph % (Auto) 31.6 [place] % (Auto) 7.9 Eos % (Auto) 1.8 Baso % (Auto) 0.2 Absolute Neuts (auto) 5.1 Absolute Lymphs (auto) 2.77 Nucleated RBC % 0 Sodium 142 Potassium 3.5 Chloride 106 Carbon Dioxide 30.0 Anion Gap 6 BUN 10 Creatinine 0.68 Estim Creat Clear Calc 83.12 Est GFR (MDRD) Af Amer 116 Est GFR (MDRD) Non-Af 96 BUN/Creatinine Ratio 14.8 Glucose 88 Calcium 8.6 Total Bilirubin 0.40 Direct Bilirubin 0.11 AST 26 ALT 49 Alkaline Phosphatase 93 Total Protein 7.4 Albumin 3.1 L Globulin 4.3 H Lipase 86 - Medical Decision Making Patient uncomfortable, vital signs are stable. IV is placed morphine Zofran fluids. Lab studies, contrast CT ordered due to postop worsening pain. Labs returned are normal. Reevaluation patient more comfortable. Pending CT scan at this time. Patient was pretreated with Benadryl and Solu-Medrol due to her iodine allergy with rash and hives. Patient signed out to night physician. <Jesús Keita - Last Filed: 10/23/20 22:09> - Medical Decision Making Patient was signed out to me to follow-up on CT imaging. This shows a small fluid collection in gallbladder fossa with surrounding inflammatory changes. Patient still complaining of significant pain on reevaluation. She states she was 15 out of 10 pain when she got here and after medication is 9 out of 10. I spoke to Dr. Booth, the general surgeon on-call for Dr. Teague who performed the patient surgery. He will see the patient here in the emergency department and admit. <Gilbert Becker - Last Filed: 10/23/20 22:56> ED Disposition <Jesús Keita - Last Filed: 10/23/20 22:09> <Gilbert Becker - Last Filed: 10/23/20 22:56> - Plan for ED Patient: Diagnosis: Post-op pain Referrals: Irma Bates MD [Primary Care Provider] -
[2020-10-23] MEDS: DiphenhydrAMINE 50 MG/ML Syringe IV (20:50)
[2020-10-23] MEDS: Ondansetron 4 MG/2 ML Vial IV (20:50)
[2020-10-23] MEDS: MethylPREDNISolone 125 MG/2 ML Vial IV (20:50)
[2020-10-23] MEDS: 0.9% Normal Saline 1,000 ML 150 ML IV (20:50)
[2020-10-23] MEDS: Morphine 4 MG/ML Syringe IV (20:51)
[2020-10-23 20:54] LABS: Absolute Lymphocyte Count 2.77 X10^3/uL (0.83-4.51); Absolute Neutrophil Count 5.1 X10^3/uL (2.0-7.7); Basophil# 0.02 X10^3/uL; Basophil% 0.2 % (0-1); Eosinophil# 0.16 X10^3/uL; Eosinophils% 1.8 % (0-5); Hematocrit 36.3 % (37-47); Hemoglobin 11.4 g/dL (12.0-15.0); Lymphocyte # 2.77 X10^3/ul (4.0); Lymphocyte % 31.6 % (19-41); Mean Corp Hgb Conc 31.4 g/dL (32-36); Mean Corpuscular Volume 82.9 fL (81-99); Mean Platelet Vol. 10.2 fl (6.2-12.0); Monocyte# 0.69 X10^3/uL; Monocyte% 7.9 % (0-10); NRBC Flagged by Analyzer 0 % (0-5); Neutrophil % 58.3 % (47-70); Platelet Count 289 K/mm3 (150-450); RBC Distribution Width CV 13.2 % (11.6-14.6); RBC Distribution Width SD 40.2 fl (35.1-43.9); Red Blood Count 4.38 M/mm3 (4.2-5.4); White Blood Count 8.8 K/mm3 (4.4-11.0)
[2020-10-23 21:09] LABS: AST(SGOT) 26 U/L (15-37); Alanine Aminotransfer ALT/SGPT 49 U/L (13-56); Albumin, Serum 3.1 g/dL (3.2-5.0); Alkaline Phosphatase 93 U/L (45-117); Anion Gap 6 (5-15); BUN 10 mg/dL (7-18); BUN/Creat Ratio 14.8 RATIO (10-20); Bilirubin, Direct 0.11 mg/dL (0.00-0.30); Calcium,Total 8.6 mg/dL (8.5-10.1); Chloride 106 mmol/L (98-107); Creatinine, Serum 0.68 mg/dL (0.55-1.02); EST Glomerular Filtration Rate 96 mL/min (>60); Est Glom Filt Rate - Afr Amer 116 mL/min (>60); Estimated Creatinine Clearance 83.12 ml/min; Globulin 4.3 g/dL (2.2-4.2); Glucose 88 mg/dL (74-106); Lipase 86 U/L (73-393); Potassium 3.5 mmol/L (3.5-5.1); Protein, Total 7.4 g/dL (6.4-8.2); Sodium Level 142 mmol/L (136-145)
--- NOTE | 2020-10-23 22:20 | CT_ITS ---
HISTORY: HAD GALLBLADDER REMOVED ON THE September. NOW HAVING INCREASE IN PAIN. HX OF HIATAL HERNIA ADDITIONAL HISTORY: None provided. EXAMINATION/TECHNIQUE: CT Abdomen And Pelvis W/ Contrast Injection CONTRAST: 75mL Isovue-370 IV contrast. Enteric contrast was given. A radiation dose optimization technique was used for this scan. Number of images including paperwork: [id number] COMPARISON: 04/23/2020. Ultrasound 09/10/2020 FINDINGS: LOWER THORAX: No consolidation or pleural effusion. Linear basilar subsegmental atelectasis versus scarring. LIVER: Hepatic cysts appear similar to previous. GALLBLADDER: Cholecystectomy. Small fluid collection is seen in the gallbladder fossa measuring approximately 1.8 x 3.2 cm (2: 54). Mild surrounding stranding and increased enhancement of the adjacent liver. No gas. BILE DUCTS: No significant biliary dilatation. SPLEEN: Unremarkable. PANCREAS: Unremarkable. ADRENAL GLANDS: Unremarkable. KIDNEYS/URETERS: Right renal cyst for which no follow-up is warranted per consensus guidelines. BOWEL: Sleeve gastrectomy. No bowel obstruction. No significant bowel wall thickening. No localized inflammation. APPENDIX: No evidence of appendicitis. FREE FLUID: No significant free fluid. FREE AIR: None. LYMPH NODES: No pathologic appearing adenopathy. PERITONEUM, RETROPERITONEUM AND MESENTERY: Otherwise unremarkable. VASCULATURE: Unremarkable as imaged. PELVIS: Unremarkable bladder. ABDOMINAL WALL: Unremarkable. OSSEOUS AND SOFT TISSUE STRUCTURES: No acute skeletal findings. CT/Abdomen/Pelvis WITH Contrast IMPRESSION: Small fluid collection in the gallbladder fossa with mild surrounding inflammatory changes, possibly infection, biloma or other cause of postoperative fluid collection. Individualized dose optimization techniques were used for this CT. at 2240 Reported and signed by: Shanthi Metcalf MD Electronically Signed: Shanthi Metcalf MD at 22:40 EST Tel , Service support ,
--- NOTE | 2020-10-23 23:23 | HP.PCM_ITS ---
Problem List (1) Right upper quadrant abdominal pain Status: Acute History of Present Illness Date of Admission: 10/23/20 The patient is a 55 year old F who is 3 days postop laparoscopic cholecystectomy by Dr. Teague. Patient states she went home the same day was having discomfort however symptoms worsened yesterday and throughout today. No nausea or vomiting however she states she still has a scopolamine patch on. Large bowel movement yesterday positive flatus. History of gastric sleeve and hysterectomy in the past. Has been using her hydrocodone 2 tabs every 8 hours last dosing prior to arrival. No urinary symptoms. No fevers. CAT scan in the emergency department showed IMPRESSION: Small fluid collection in the gallbladder fossa with mild surrounding inflammatory changes, possibly infection, biloma or other cause of postoperative fluid collection. Individualized dose optimization techniques were used for this CT. She was given pain medicine and her pain has improved but it is still rating it at least an 8 or 9 out of 10 Past Medical History Medical History: Medical History (Last Reviewed 10/23/20 @ 23:[address] Gary Booth MD) Depression F32.9 Diarrhea R19.7 Allergies iodine Allergy (Verified 10/23/20 20:24) Hives erythromycin base Adverse Reaction (Verified 10/23/20 20:24) Nausea Home Medications: Ambulatory Orders Medication Instructions Recorded Fluoxetine [Prozac] 60 mg PO DAILY 04/02/16 Loperamide [Imodium] 4 mg PO DAILY 04/02/16 Multivitamins,Therapeutic 1 tab PO DAILY 04/02/16 [Multivitamin] Clonidine HCl 0.1 mg PO QHS 09/09/20 Mirtazapine 7.5 mg PO QHS 09/09/20 Hydrocodone/Acetaminophen 1 - 2 tab PO Q6H PRN PRN 5 Days 10/20/20 [Hydrocodon-Acetaminophen 5-325] #30 tab Surgical History: Surgical History (Last Reviewed 10/23/20 @ 23:[address] Gary Booth MD) S/P hysterectomy Z90.710 S/P laparoscopic sleeve gastrectomy Z98.84 S/P tonsillectomy Z90.89 s/p a/p repair Surgical History: - - Gastric sleeve Smoking Status: Former smoker Review of Systems Constitutional: Denies: Chills, Fever, Weight Change Cardiovascular: Denies: Chest Pain, Chest Pressure, Chest Tightness, Palpitations Respiratory: Denies: Cough, Hemoptysis, Shortness of breath at rest, Shortness of breath upon exertion, Wheezing Gastrointestinal: Reports: Abdominal Pain - Right-sided abdominal pain going up to her right upper back VTE Information - Inpt Only VTE Present on Admission: No VTE Mechan Device Prophylaxis: SCD's VTE Pharm Prophylaxis ordered?: No Reason prophylaxis not ordered:: Treatment Not Indicated Patient Problems: Active and Suspected Problems (Last Updated 09/16/20 @ 10:23 by Leda Davis) Post-op pain (Acute) - Physical Exam Vitals/I&O's: Vital Signs Temp Pulse Resp BP Pulse Ox 97.9 F 86 18 158/96 H 96 10/23/20 20:22 10/23/20 20:22 10/23/20 20:22 10/23/20 20:22 10/23/20 20:22 Oxygen Delivery Method Room Air Weight: 200 lb Body Mass Index (BMI) 33.3 Finger Stick Blood Glucose 53 General: Alert, Oriented x3 Lungs: Clear to auscultation Cardiovascular: Regular rate, Regular Rhythm, No murmurs Abdomen: Soft, Tender - Pain is most severe in the right upper quadrant. But she does have some along the right gutter as well. She has some Rovsing sign as well. Laboratory Results 10/23/20 20:41: WBC 8.8, RBC 4.38, Hgb 11.4 L, Hct 36.3 L, MCV 82.9, MCH 26.0 L, MCHC 31.4 L, RDW Std Deviation 40.2, RDW Coeff of Elina 13.2, Plt Count 289, MPV 10.2, Immature Gran % (Auto) 0.200, Neut % (Auto) 58.3, Lymph % (Auto) 31.6, [place] % (Auto) 7.9, Eos % (Auto) 1.8, Baso % (Auto) 0.2, Absolute Neuts (auto) 5.1, Absolute Lymphs (auto) 2.77, Nucleated RBC % 0 10/23/20 20:41: Sodium 142, Potassium 3.5, Chloride 106, Carbon Dioxide 30.0, Anion Gap 6, BUN 10, Creatinine 0.68, Estim Creat Clear Calc 83.12, Est GFR (MDRD) Af Amer 116, Est GFR (MDRD) Non-Af 96, BUN/Creatinine Ratio 14.8, Glucose 88, Calcium 8.6, Total Bilirubin 0.40, Direct Bilirubin 0.11, AST 26, ALT 49, Alkaline Phosphatase 93, Total Protein 7.4, Albumin 3.1 L, Globulin 4.3 H, Lipase 86 Current Medications Sodium Chloride () 1,000 mls @ 150 mls/hr IV .Q6H40M [facility] Last Admin: 10/23/20 20:50 Dose: 150 mls/hr Documented by: Assessment/Plan All Active Problems (Last Updated 09/16/20 @ 10:23 by Leda Davis) Biliary colic (Acute) Cholelithiasis (Acute) Post-op pain (Acute) Right upper quadrant abdominal pain (Acute) Going to admit the patient hydrate her well. I am going to obtain a HIDA scan tomorrow to see if she has a bile leak which is high on my suspicion list. If this is the case and we will need to perform an ERCP on her.
--- NOTE | 2020-10-23 23:31 | NM_ITS ---
CLINICAL: Female, 55 years old patient with abdominal pain after cholecystectomy on 10/20/2020. Possible bile leak NUCLEAR BILIARY SCAN TECHNIQUE: Following the intravenous administration of 5.8 mCi of Tc Mebrofenin, hepatobiliary images was performed. COMPARISON STUDIES : NM - None. CR - Not available for review at this time. CT - CT of the abdomen and pelvis dated 10/23/2020. MR - Not available for review at this time. US - Not available for review at this time. FINDINGS: Relatively prompt and homogeneous radiopharmaceutical concentration is noted by a normal sized liver. There are no parenchymal defects noted. Small bowel activity is identified at 13 minutes post radiopharmaceutical administration. Washout of the radiopharmaceutical by the hepatic parenchyma occurs in a normal fashion on qualitative inspection. NM/Hepatobilliary Imaging IMPRESSION: No evidence for bile leak. A gallbladder ejection fraction calculated to be greater than 35% following the administration of Cholecystokinin makes the probability of functional hepatobiliary disease (gallbladder and/or sphincter of Oddi dyskinesia) and/or organic hepatobiliary disease (chronic acalculous cholecystitis and/or cystic duct syndrome) to be low. (Isabel Portillo al, Journal of Nuclear Medicine 32:1695, 1991). Electronically Signed: Jacklyn Ling MD at 7:36 EST , Service support ,
--- NOTE | 2020-10-23 23:38 | PCM.PROGNOTE ---
Patient Problems: Active and Suspected Problems (Last Reviewed 10/23/20 @ 23:[address] Gary Booth MD) Post-op pain (Acute) Right upper quadrant abdominal pain (Acute) Subjective: This is a 55 years old female patient presented to the emergency room because of increasing right upper quadrant abdominal pain. She underwent laparoscopic cholecystectomy on October 20, 2020 cholelithiasis and biliary colic and she was discharged same day. Patient mentioned that her pain did not go away after surgery and since yesterday, her right upper quadrant abdominal pain has been getting worse, sharp pain, goes up to 8 out of 10 in severity, not radiating, no associated nausea or vomiting although she had scopolamine patch on her neck and no aggravating or relieving factors. Her routine blood work was remarkable for hemoglobin of 11.4 g/dL, otherwise normal. LFT and lipase were normal. Her vital signs are stable. - Physical Exam Vitals/I&O's: Vital Signs Temp Pulse Resp BP Pulse Ox 97.9 F 86 18 158/96 H 96 10/23/20 20:22 10/23/20 20:22 10/23/20 20:22 10/23/20 20:22 10/23/20 20:22 Oxygen Delivery Method Room Air Weight: 200 lb Body Mass Index (BMI) 33.3 Finger Stick Blood Glucose 53 General: Alert, Oriented x3, Cooperative, No apparent distress HEENT: Atraumatic, PERRLA, EOMI, Normocephalic Oral: Moist Mucosa, No Gingival or Mucosal Lesions/ Ulcerations Neck: Supple, No JVD, Negative Carotid Bruits, Trachea Midline, Thyroid Normal Size and Texture Lungs: Clear to auscultation, Normal air movement, No rhonchi, No wheeze, No rales, Diminished Cardiovascular: Regular rate, Regular Rhythm, Normal S1, Normal S2, PMI Normal Abdomen: Bowel Sounds Present, Soft, No Hepato-splenomegaly, Obese, Tender - Right upper quadrant tenderness and guarding, no rigidity. Extremities: No clubbing, No cyanosis, No edema Skin: No rashes, No breakdown Lymphatic: No Cervical, Supraclavicular, or Inguinal Adenopathy Neurological: Cranial nerves II-XII grossly intact, Motor Exam 5/5 strength throughout Psych/Mental Status: Normal Affect, Appropriate, Alert and oriented to time, place, person, mood and affect Laboratory Results 10/23/20 20:41: WBC 8.8, RBC 4.38, Hgb 11.4 L, Hct 36.3 L, MCV 82.9, MCH 26.0 L, MCHC 31.4 L, RDW Std Deviation 40.2, RDW Coeff of [place] 13.2, Plt Count 289, MPV 10.2, Immature Gran % (Auto) 0.200, Neut % (Auto) 58.3, Lymph % (Auto) 31.6, [place] % (Auto) 7.9, Eos % (Auto) 1.8, Baso % (Auto) 0.2, Absolute Neuts (auto) 5.1, Absolute Lymphs (auto) 2.77, Nucleated RBC % 0 10/23/20 20:41: Sodium 142, Potassium 3.5, Chloride 106, Carbon Dioxide 30.0, Anion Gap 6, BUN 10, Creatinine 0.68, Estim Creat Clear Calc 83.12, Est GFR (MDRD) Af Amer 116, Est GFR (MDRD) Non-Af 96, BUN/Creatinine Ratio 14.8, Glucose 88, Calcium 8.6, Total Bilirubin 0.40, Direct Bilirubin 0.11, AST 26, ALT 49, Alkaline Phosphatase 93, Total Protein 7.4, Albumin 3.1 L, Globulin 4.3 H, Lipase 86 Clinical Impression(s) from Imaging Studies Abdomen/Pelvis CT 10/23/20 22:20 IMPRESSION: Small fluid collection in the gallbladder fossa with mild surrounding inflammatory changes, possibly infection, biloma or other cause of postoperative fluid collection. Individualized dose optimization techniques were used for this CT. at 2240 Reported and signed by: Shanthi Metcalf MD Electronically Signed: Shanthi Metcalf MD at 22:40 EST Tel , Service support , Current Medications Clonidine (Clonidine Hcl 0.1 Mg Tablet) 0.1 mg PO QHS [facility] Fluoxetine HCl (Fluoxetine 20 Mg Capsule) 60 mg PO DAILY [facility] Hydromorphone HCl (Hydromorphone 0.5 Mg/0.5 Ml Syringe) 0.5 - 1 mg IV Q2H PRN PRN PRN Reason: Pain Score 1-10 Sodium Chloride () 1,000 mls @ 150 mls/hr IV .Q6H40M [facility] Last Admin: 10/23/20 20:50 Dose: 150 mls/hr Documented by: Sodium Chloride () 1,000 mls @ 75 mls/hr IV .[id number] [facility] Piperacillin Sod/Tazobactam (Sod 3.375 gm/ Sodium Chloride) 50 mls @ 12.5 mls/hr IV Q8 [facility] Ketorolac Tromethamine (Ketorolac 15 Mg/Ml Vial) 15 mg IV Q6H PRN PRN PRN Reason: Pain Score 1-10 Non-Formulary Medication (Mirtazapine) 7.5 mg PO QHS [facility] Ondansetron HCl (Ondansetron 4 Mg/2 Ml Vial) 4 mg IV Q8H PRN PRN PRN Reason: NAUSEA Oxycodone HCl (Oxycodone 5 Mg Tablet) 5 - 10 mg PO Q4H PRN PRN PRN Reason: Pain Score 6-10 Medical Necessity - Tobacco Use Smoking Status: Former smoker Assessment/Plan All Active Problems (Last Reviewed 10/23/20 @ 23:[address] Gary Booth MD) Biliary colic (Acute) Cholelithiasis (Acute) Post-op pain (Acute) Right upper quadrant abdominal pain (Acute) This is a 55 years old female patient presented to the emergency room because of worsening right upper quadrant abdominal pain after she underwent laparoscopic cholecystectomy 3 days ago for cholelithiasis and biliary colic and she is being admitted under general surgery services and I was consulted for medical management. #1 right upper quadrant abdominal pain: In the setting of laparoscopic cholecystectomy 3 days ago. LFT and lipase were normal. CBC was remarkable for hemoglobin of 11.4 g/dL, otherwise normal, no leukocytosis. CT scan abdomen and pelvis with contrast revealed small fluid collection in the gallbladder fossa with mild surrounding inflammatory changes. Currently, she is on IV Zosyn, IV Dilaudid for pain as well as IV antiemetics. Plan for HIDA scan tomorrow morning. General surgery is managing. #2 depression: Stable, continue Prozac and mirtazapine. #3 ADHD: Stable, continue clonidine. #4 DVT prophylaxis: SCDs. This note was generated with [employer] software. It may contain incorrect words, spelling, and punctuation that were not noted in checking the note before signing. Inpatient E&M: [id number] Subs Hosp L2
[2020-10-24] MEDS: HYDROmorphone 1 MG/ML Syringe IV (00:02)
[2020-10-24 00:05] VITALS: BP 143/92; PULSE 68; RESP 16; RESP 18; TEMP 35.7; O2SAT 94
[2020-10-24 00:45] VITALS: BP 143/93; PULSE 69; RESP 18; TEMP 36.7; O2SAT 93
[2020-10-24] MEDS: 0.9% Normal Saline 1,000 ML 75 ML IV (00:48)
[2020-10-24 00:52] VITALS: BMI 34.4
[2020-10-24 00:58] VITALS: BMI 34.5
--- NOTE | 2020-10-24 02:00 | NURSING ---
covid 19 emergency charting in effect.
[2020-10-24 03:37] VITALS: BP 151/92; PULSE 63; RESP 18; TEMP 36.6; O2SAT 93
[2020-10-24] MEDS: Ketorolac 15 MG/ML Vial IV ×2 (03:51→11:05)
[2020-10-24 05:46] LABS: Absolute Lymphocyte Count 0.56 X10^3/uL (0.83-4.51); Absolute Neutrophil Count 6.9 X10^3/uL (2.0-7.7); Hematocrit 34.5 % (37-47); Hemoglobin 11.1 g/dL (12.0-15.0); Lymphocyte # 0.56 X10^3/ul (4.0); Lymphocyte % 7.4 % (19-41); Mean Corp Hgb Conc 32.2 g/dL (32-36); Mean Corpuscular Hgb 26.3 pg (27.0-32.0); Mean Corpuscular Volume 81.8 fL (81-99); Monocyte# 0.06 X10^3/uL; Monocyte% 0.8 % (0-10); NRBC Flagged by Analyzer 0 % (0-5); Neutrophil # 6.91 X10^3/uL (2.7-7.7); Neutrophil % 91.3 % (47-70); POSITIVE DIFFERENTIAL YES; Platelet Count 285 K/mm3 (150-450); RBC Distribution Width CV 13.1 % (11.6-14.6); RBC Distribution Width SD 39.2 fl (35.1-43.9); Red Blood Count 4.22 M/mm3 (4.2-5.4); White Blood Count 7.6 K/mm3 (4.4-11.0)
[2020-10-24 05:58] LABS: Differential Indicated SCAN CRITERIA MET
[2020-10-24 06:14] LABS: Differential Comment SCANNED
[2020-10-24 06:16] LABS: ALB/GLOB Ratio 0.7 RATIO (0.9-2.4); AST(SGOT) 25 U/L (15-37); Alanine Aminotransfer ALT/SGPT 48 U/L (13-56); Alkaline Phosphatase 84 U/L (45-117); Amylase 31 U/L (25-115); Anion Gap 5 (5-15); BUN 9 mg/dL (7-18); BUN/Creat Ratio 14.7 RATIO (10-20); Calcium,Total 8.5 mg/dL (8.5-10.1); Chloride 104 mmol/L (98-107); Creatinine, Serum 0.61 mg/dL (0.55-1.02); EST Glomerular Filtration Rate 108 mL/min (>60); Est Glom Filt Rate - Afr Amer 130 mL/min (>60); Estimated Creatinine Clearance 88.92 ml/min; Globulin 4.2 g/dL (2.2-4.2); Glucose 152 mg/dL (74-106); Lipase 49 U/L (73-393); Potassium 4.1 mmol/L (3.5-5.1); Protein, Total 7.2 g/dL (6.4-8.2); Sodium Level 137 mmol/L (136-145)
--- NOTE | 2020-10-24 08:53 | PN.SURG_ITS ---
Patient Problems: Active and Suspected Problems (Last Reviewed 10/23/20 @ 23:[address] Gary Booth MD) Post-op pain (Acute) Right upper quadrant abdominal pain (Acute) Subjective: HIDA scan shows no signs of bile leak. Her pain has improved. Objective: Abdomen is soft still slightly tender in the right upper quadrant - Physical Exam Vitals/I&O's: Vital Signs Temp Pulse Resp BP Pulse Ox 98 F 63 18 151/92 H 93 10/24/20 03:37 10/24/20 03:37 10/24/20 03:37 10/24/20 03:37 10/24/20 03:37 Oxygen Delivery Method Room Air Weight: 206 lb 12.697 oz Body Mass Index (BMI) 34.4 Finger Stick Blood Glucose 53 Intake and Output for Last 24 Hours 10/22/20 10/23/20 10/24/20 23:59 23:59 23:59 Intake Total 450 / 450 Output Total 400 / 400 Balance 50 / 50 Laboratory Results 10/23/20 20:41: WBC 8.8, RBC 4.38, Hgb 11.4 L, Hct 36.3 L, MCV 82.9, MCH 26.0 L, MCHC 31.4 L, RDW Std Deviation 40.2, RDW Coeff of Elina 13.2, Plt Count 289, MPV 10.2, Immature Gran % (Auto) 0.200, Neut % (Auto) 58.3, Lymph % (Auto) 31.6, [place] % (Auto) 7.9, Eos % (Auto) 1.8, Baso % (Auto) 0.2, Absolute Neuts (auto) 5.1, Absolute Lymphs (auto) 2.77, Nucleated RBC % 0 10/23/20 20:41: Sodium 142, Potassium 3.5, Chloride 106, Carbon Dioxide 30.0, Anion Gap 6, BUN 10, Creatinine 0.68, Estim Creat Clear Calc 83.12, Est GFR (MDRD) Af Amer 116, Est GFR (MDRD) Non-Af 96, BUN/Creatinine Ratio 14.8, Glucose 88, Calcium 8.6, Total Bilirubin 0.40, Direct Bilirubin 0.11, AST 26, ALT 49, Al kaline Phosphatase 93, Total Protein 7.4, Albumin 3.1 L, Globulin 4.3 H, Lipase 86 10/24/20 05:35: WBC 7.6, RBC 4.22, Hgb 11.1 L, Hct 34.5 L, MCV 81.8, MCH 26.3 L, MCHC 32.2, RDW Std Deviation 39.2, RDW Coeff of Elina 13.1, Plt Count 285, MPV 10.0, Immature Gran % (Auto) 0.500, Neut % (Auto) 91.3 H, Lymph % (Auto) 7.4 L, [place] % (Auto) 0.8, Eos % (Auto) 0.0, Baso % (Auto) 0.0, Absolute Neuts (auto) 6 .9, Absolute Lymphs (auto) 0.56 L, Nucleated RBC % 0, Differential Comment SCANNED 10/24/20 05:35: Sodium 137, Potassium 4.1, Chloride 104, Carbon Dioxide 28.0, Anion Gap 5, BUN 9, Creatinine 0.61, Estim Creat Clear Calc 88.92, Est GFR (MDRD) Af Amer 130, Est GFR (MDRD) Non-Af 108, BUN/Creatinine Ratio 14.7, Glucose 152 H, Calcium 8.5, Total Bilirubin 0.50, AST 25, ALT 48, Alkaline Phosphatase 84, Total Protein 7.2, Albumin 3.0 L, Globulin 4.2, Albumin/Globulin Ratio 0.7 L, Amylase 31, Lipase 49 L Current Medications Clonidine (Clonidine Hcl 0.1 Mg Tablet) 0.1 mg PO QHS [facility] Fluoxetine HCl (Fluoxetine 20 Mg Capsule) 60 mg PO DAILY [facility] Hydromorphone HCl (Hydromorphone 0.5 Mg/0.5 Ml Syringe) 0.5 - 1 mg IV Q2H PRN PRN PRN Reason: Pain Score 1-10 Sodium Chloride () 1,000 mls @ 75 mls/hr IV .[id number] [facility] Last Admin: 10/24/20 00:48 Dose: 75 mls/hr Documented by: Piperacillin Sod/Tazobactam (Sod 3.375 gm/ Sodium Chloride) 50 mls @ 12.5 mls/hr IV Q8 [facility] Last Admin: 10/24/20 07:03 Dose: 12.5 mls/hr Documented by: Sodium Chloride () 250 mls @ 15 mls/hr IV .[id number] PRN PRN Reason: Saline Flush Sodium Chloride () 250 mls @ 15 mls/hr IV .[id number] PRN PRN Reason: Additional IVPB Infusion Pantoprazole Sodium 40 mg/ (Sodium Chloride) 110 mls @ 330 mls/hr IV Q24 [facility] Ketorolac Tromethamine (Ketorolac 15 Mg/Ml Vial) 15 mg IV Q6H PRN PRN PRN Reason: Pain Score 1-10 Last Admin: 10/24/20 03:51 Dose: 15 mg Documented by: Mirtazapine (Mirtazapine 15 Mg Tablet) 7.5 mg PO QHS [facility] Ondansetron HCl (Ondansetron 4 Mg/2 Ml Vial) 4 mg IV Q8H PRN PRN PRN Reason: NAUSEA Oxycodone HCl (Oxycodone 5 Mg Tablet) 5 - 10 mg PO Q4H PRN PRN PRN Reason: Pain Score 1-10 Sodium Chloride (0.9% Saline Lock 10 Ml Syringe) 10 - 40 ml IV UD PRN PRN Reason: SALINE FLUSH Medical Necessity - Tobacco Use Smoking Status: Never smoker Assessment/Plan All Active Problems (Last Reviewed 10/23/20 @ 23:[address] Gary Booth MD) Biliary colic (Acute) Cholelithiasis (Acute) Post-op pain (Acute) Right upper quadrant abdominal pain (Acute) Diminished under home on a PPI and will change her pain medicines around slightly as well.
--- NOTE | 2020-10-24 08:58 | DCINST_ITS ---
Discharge Diet: Light diet - advance as tolerated Discharge Activity: May Not Drive - for 2-3 days or while taking narcotic pain medications., - - Do not drive, work heavy equipment or sign legal documents for 24 hours. May shower in (days): 1 - with the bandage in place. Additional Activity Instructions:: Pain medication may cause nausea. You should typically eat light foods as you take your pain medications. Pain medication may also cause constipation. If this is a problem for you, please discuss with your doctor. Call your doctor if your incision/area has: Continuous Slow Oozing, Sudden Increased Bleeding, Increased Pain/ Swelling, Increased Redness, Foul Smelling Discharge Call your doctor if you observe: Fever of 101 or Higher Suture Line Care: Avoid Pulling/Pushing, Avoid Pinching/Bending Additional Dressing/Incision Instructions:: Leave operative bandaids on for 2 days. When you remove dressing, leave Steri-Strips on until your follow-up appointment, or until the Steri-Strips fall off on their own. Allergies/Adverse Reactions: Allergies iodine Allergy (Verified 10/23/20 20:24) Hives erythromycin base Adverse Reaction (Verified 10/23/20 20:24) Nausea Medications to take at Discharge Fluoxetine [Prozac] 60 mg PO DAILY 04/02/16 Loperamide [Imodium] 4 mg PO DAILY 04/02/16 Multivitamins,Therapeutic [Multivitamin] 1 tab PO DAILY 04/02/16 Clonidine HCl 0.1 mg PO QHS 09/09/20 Mirtazapine 7.5 mg PO QHS 09/09/20 Hydrocodone/Acetaminophen [Hydrocodon-Acetaminophen 5-325] 1 - 2 tab PO Q6H PRN PRN 5 Days #30 tab 10/20/20 Calcium 10/24/20 Omeprazole [Prilosec] 20 mg PO DAILY #14 cap 10/24/20 Oxycodone [Oxyir] 10 mg PO Q6H PRN PRN 6 Days #24 tab 10/24/20 The following prescriptions were given: Oxycodone [Oxyir] 10 mg PO Q6H PRN PRN 6 Days #24 tab PRN Reason: Pain 1-10 Or Fever Transmission Status: Received by [id number] Omeprazole [Prilosec] 20 mg PO DAILY #14 cap Transmission Status: Pending to [id number] Primary Care Physician: Irma Bates MD [Primary Care Provider] - Test Results: Test results from this visit will be discussed in further detail at your follow- up appointment, if applicable. Please Follow Up With: Gary Booth MD - Please call [phone] to schedule an appointment. When: 7 days after your surgery.
[2020-10-24 09:35] VITALS: BP 146/81; PULSE 64; RESP 18; TEMP 36.6; O2SAT 93
[2020-10-24] MEDS: FLUoxetine 20 MG Capsule 60 MG PO (10:56)
== END 2020-10-24 11:50 | disposition home or self-care (01) | DRG 392 ==
LOC: ED 22:14 → MS3 23:47
PROVIDERS: Emergency Medicine; Admitting Provider Surgery; Emergency Provider Emergency Medicine; PCP Internal Medicine; Referring Provider Surgery; Visit Provider Internal Medicine
DX: G89.18 Other acute postprocedural pain (principal); R10.11 Right upper quadrant pain; F32.9 Major depressive disorder, single episode, unspecified; F41.9 Anxiety disorder, unspecified; F90.9 Attention-deficit hyperactivity disorder, unspecified type; Z90.49 Acquired absence of other specified parts of digestive tract; Z90.710 Acquired absence of both cervix and uterus; Z98.84 Bariatric surgery status; Z91.041 Radiographic dye allergy status; Z87.891 Personal history of nicotine dependence; Z79.899 Other long term (current) drug therapy
CPT/HCPCS: 36415; 74177; 78226; 80048; 80053; 80076; 82150; 83690; 85025; 96361; 96365; 96366; 96367; 96375; 96376; 99284; A9537; J7030; Q9967; A4216; J2405

== ENCOUNTER → 2020-10-29 11:19 | Outpatient (CLI) | payer OTHER, SELFPAY ==
[2020-10-24 00:52] VITALS: BMI 34.4
== END ==
PROVIDERS: PCP Internal Medicine; Referring Provider Surgery; Visit Provider Surgery
DX: R19.7 Diarrhea, unspecified (principal)
CPT/HCPCS: 87493

== ENCOUNTER → 2021-02-09 10:08 | Outpatient (CLI) | payer OTHER, SELFPAY ==
[2021-02-09 11:37] LABS: EXAGEN MAILED SPECIMEN
[2021-02-09 12:34] LABS: Absolute Lymphocyte Count 2.72 X10^3/uL (0.83-4.51); Absolute Neutrophil Count 2.7 X10^3/uL (2.0-7.7); Basophil# 0.03 X10^3/uL; Basophil% 0.5 % (0-1); Eosinophil# 0.14 X10^3/uL; Eosinophils% 2.3 % (0-5); Hematocrit 40.6 % (37-47); Hemoglobin 13.1 g/dL (12.0-15.0); Lymphocyte # 2.72 X10^3/ul (4.0); Lymphocyte % 45.4 % (19-41); Mean Corp Hgb Conc 32.3 g/dL (32-36); Mean Corpuscular Hgb 26.3 pg (27.0-32.0); Mean Corpuscular Volume 81.4 fL (81-99); Mean Platelet Vol. 10.6 fl (6.2-12.0); Monocyte# 0.41 X10^3/uL; Monocyte% 6.8 % (0-10); NRBC Flagged by Analyzer 0 % (0-5); Neutrophil # 2.66 X10^3/uL (2.7-7.7); Neutrophil % 44.5 % (47-70); Platelet Count 303 K/mm3 (150-450); RBC Distribution Width CV 14.1 % (11.6-14.6); RBC Distribution Width SD 41.4 fl (35.1-43.9); Red Blood Count 4.99 M/mm3 (4.2-5.4)
[2021-02-09 12:42] LABS: Partial Thromboplast Time 27.5 Seconds (24.1-36.2)
[2021-02-09 12:44] LABS: Glucose, Dipstick Normal (Normal); Ketone-Dipstick Negative (Negative); Leukocyte Esterase-Dipstick 25 /ul (Negative); Nitrite-Dipstick Negative (Negative); Occult Blood-Urine 10 /ul (Negative); Protein-Dipstick Negative (Negative); Urine Bilirubin Dipstick Negative (Negative); Urine Urobilinogen Normal (Normal)
[2021-02-09 12:47] LABS: Prothrombin Time (Protime)PT. 12.8 SECONDS (11.7-14.9)
[2021-02-09 12:48] LABS: Color, Urine Yellow (Yellow); Urine Clarity Clear (Clear)
[2021-02-09 13:00] LABS: ALB/GLOB Ratio 0.9 RATIO (0.9-2.4); AST(SGOT) 31 U/L (15-37); Alanine Aminotransfer ALT/SGPT 36 U/L (13-56); Albumin, Serum 3.7 g/dL (3.2-5.0); Alkaline Phosphatase 94 U/L (45-117); Anion Gap 4 (5-15); BUN 7 mg/dL (7-18); BUN/Creat Ratio 11.5 RATIO (10-20); Calcium,Total 8.9 mg/dL (8.5-10.1); Chloride 105 mmol/L (98-107); Creatinine, Serum 0.61 mg/dL (0.55-1.02); EST Glomerular Filtration Rate 108 mL/min (>60); Est Glom Filt Rate - Afr Amer 130 mL/min (>60); Glucose 81 mg/dL (74-106); Potassium 3.6 mmol/L (3.5-5.1); Protein, Total 7.7 g/dL (6.4-8.2); Sodium Level 140 mmol/L (136-145)
[2021-02-09 13:07] LABS: Protein, Urine (Random) 11.4 mg/dL (<11.9); Protein:Creat Ratio 66 mg/g CRE (0-200)
[2021-02-09 16:10] LABS: Hepatitis B Surface Antibody Reactive; Hepatitis B Surface Antigen Non-Reactive (Nonreactive); Hepatitis C Antibody Non-Reactive (Nonreactive)
[2021-02-10 15:41] LABS: Thrombin Time 18.4 sec (0.0-23.0)
[2021-02-10 16:08] LABS: Dilute Prothrombin Time (dPT) 38.4 sec (0.0-55.0); Hexagonal Phase Phospholipid 0 sec (0-11); PTT-LA 33.3 sec (0.0-51.9); Thrombin Time 18.5 sec (0.0-23.0); dPT Confirm Ratio 1.17 Ratio (0.00-1.40)
[2021-02-10 16:38] LABS: Interpretation Comment: (.)
== END ==
PROVIDERS: PCP Internal Medicine; Referring Provider Internal Medicine Rheumatology; Visit Provider Internal Medicine Rheumatology
DX: M06.4 Inflammatory polyarthropathy (principal); R76.8 Other specified abnormal immunological findings in serum; K58.9 Irritable bowel syndrome, unspecified; F32.9 Major depressive disorder, single episode, unspecified; F98.8 Other specified behavioral and emotional disorders with onset usually occurring in childhood and adolescence; Z86.79 Personal history of other diseases of the circulatory system; Z98.84 Bariatric surgery status
CPT/HCPCS: 36415; 80053; 81002; 82570; 84156; 85025; 85598; 85610; 85670; 85730; 86706; 86803; 87340

== ENCOUNTER 2021-04-22 11:13 | Emergency (ER) | payer OTHER, SELFPAY ==
[2021-04-22 11:15] VITALS: BP 142/97; PULSE 87; RESP 14; TEMP 36.1; O2SAT 96; BMI 32.4
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
--- NOTE | 2021-04-22 12:36 | RAD_ITS ---
STUDY: X-RAY - CERVICAL SPINE REASON FOR EXAM: Female, 55 years old. neck pain TECHNIQUE: view(s) of the cervical spine were obtained. COMPARISON: None FINDINGS: Normal anterior atlantoaxial articulation. Normal odontoid process. Normal cervical lordosis. Normal vertebral bodies and endplates. Normal disc space heights. Normal visualized intervertebral neuroforamina. The soft tissue structures are unremarkable. RAD/Cerv Spine 2 or 3 Views IMPRESSION: Normal x-ray examination of the visualized cervical spine. Electronically Signed: Jessica Reyes, at 13:08 EDT Tel , Service support ,
[2021-04-22] MEDS: HYDROcodone Bitartrate/Apap 5/325 Tablet PO (13:04)
[2021-04-22 13:20] VITALS: RESP 18
== END 2021-04-22 13:22 | disposition home or self-care (01) ==
PROVIDERS: Emergency Provider Student in an Organized Health Care Education/Training Program; PCP Internal Medicine
DX: S16.1XXA Strain of muscle, fascia and tendon at neck level, initial encounter (principal); V49.60XA Unspecified car occupant injured in collision with unspecified motor vehicles in traffic accident, initial encounter
CPT/HCPCS: 72040; 99283

== ENCOUNTER 2021-08-01 19:35 | Emergency (ER) | payer OTHER, SELFPAY ==
[2021-08-01 19:36] VITALS: BP 191/116; PULSE 89; RESP 22; TEMP 36.6; O2SAT 97; BMI 32.0
--- NOTE | 2021-08-01 19:58 | ED.VIS.LOWEX ---
HPI History of Present Illness Chief Complaint: Lower Extremity Injury Informant: patient Narrative Narrative: Patient slipped off a ladder that was about 2 steps high. She has pain really in the left ankle. She abraded the keen but states it does not really hurt there. Knee hip or lower back does not hurt. Never hit her head. She cannot bear weight just because it hurts so much. She is not on any blood thinners. This was a mechanical slip and not syncope. Motion or touching makes it worse and ice and rest makes it better. [facility] Medical History ADHD Biliary colic Cholelithiasis Depression Depression Diarrhea Post-op pain Right upper quadrant abdominal pain Home Medications fluoxetine 60 mg PO DAILY 04/02/16 [History Last Taken 10/22/20] loperamide 4 mg PO DAILY 04/02/16 [History Last Taken 10/22/20] multivitamin 1 tab PO DAILY 04/02/16 [History Last Taken 10/22/20] clonidine HCl 0.1 mg PO QHS 09/09/20 [History Last Taken 10/22/20] mirtazapine 7.5 mg PO QHS 09/09/20 [History Last Taken 10/22/20] Calcium 10/24/20 [History Last Taken Unknown] cyclobenzaprine 10 mg PO TID PRN #20 tablet 04/22/21 [Rx Last Taken Unknown] atenolol 08/01/21 [History Last Taken Unknown] buspirone mg 08/01/21 [History Last Taken Unknown] hydrocodone-acetaminophen 2 tab PO Q6H PRN 7 Days #30 tab 08/01/21 [Rx Last Taken Unknown] Allergy/AdvReac Type Severity Reaction Status Date / Time iodine Allergy Hives Verified 08/01/21 20:11 erythromycin base AdvReac Nausea Verified 08/01/21 20:11 Family History Father Diabetes Heart disease Hypertension Mother Kidney disease Hypertension Surgical History History of laparoscopic cholecystectomy (~10/20/20) s/p a/p repair S/P hysterectomy S/P laparoscopic sleeve gastrectomy S/P tonsillectomy Social History Smoking Status: Never smoker alcohol intake: never ROS ROS ED Constitutional Constitutional ED: Denies fever(s) Cardiovascular Cardiovascular: Denies chest pain, palpitations or racing heartbeat Respiratory/Chest Respiratory/Chest: Denies cough or dyspnea Gastrointestinal Gastrointestinal: Denies nausea or vomiting Musculoskeletal Musculoskeletal: Reports other Details: See history of present illness. ; Denies back pain or neck pain Integumentary Reports Abrasions Neurologic Neurologic: Denies paresthesias or weakness Psychiatric Psychiatric: Reports depression Hematologic/Lymphatic Hematologic/Lymphatic: Denies easy bleeding or easy bruising EXAM Physical Exam Const Vital Signs: 08/01/21 19:36 08/01/21 23:50 Temperature 97.8 F Temperature Source Temporal Pulse Rate 89 74 Respiratory Rate 22 H 16 Blood Pressure 191/116 H 144/87 H Blood Pressure Mean 141 106 Pulse Ox 97 97 Oxygen Delivery Method Room Air Room Air Patient looks a bit uncomfortable. However she is awake alert appropriate and cooperative. Positive well nourished and well developed General Appearance ED: well developed HEENT normocephalic and atraumatic Neck full ROM Chest Wall inspection of chest normal Resp normal respiratory effort Extremity Extremity Narrative: Patient has an abrasion on her keen but no bony tenderness. No tenderness about the knee or patella. No hip tenderness. Calcaneus and foot are nontender. Fifth metatarsal is nontender. There is some swelling of the ankle area slightly more medially than laterally. She is diffusely tender. Achilles is also intact by both palpation and [place] test. Although there is swelling, there is no gross deformity. Neuro oriented x3 and no sensory deficits noted Sensorium / Orientation: alert Motor Exam: strength 5/5 throughout Skin Trauma: abrasion MDM MDM MDM Narrative Medical decision making narrative: I have looked at the patient's x-rays. It appeared as though there could be a calcaneal fracture. I had difficulty getting the system to measure Boehler's angle but it does appear to be at approximately 40 to 45 degrees. Official reading was soft tissue swelling. However, I have ordered a CAT scan Concerned that there might be a more involved injury hinted by this x-ray. CT results pending and patient turned over to oncoming physician. Procedure: Placement of lower extremity splint: We are pending the CT. However her x-ray is already convincing for a calcaneus fracture. It was explained that she needs to be nonweightbearing on this. We placed her leg in a posterior and sugar tong splint. This was very well-padded with multiple layers of web roll and soft padding also around the entire lower extremity heel ankle and foot area. The splint was wrapped loosely. It was bulky. This will allow for some swelling. Patient was reminded not to bear weight. She was comfortable with her foot in slight equinus but we did try to push this back up to better position. She was checked after splint. Good capillary refill and sensation. It was not appearing to be too tight. Radiography Diagnostic Testing: Radiology Impression Ankle X-Ray 08/01/21 20:02 IMPRESSION: Soft tissue swelling of the ankle. Electronically Signed: Tyler Kraft DO at 21:48 EDT Tel [phone], Service support , ADDENDUM: 08/01/[address] 08/01/21 21:12 IMPRESSION: Comminuted calcaneal fracture. Electronically Signed: Tyler Kraft DO at 22:55 EDT Tel [phone], Service support , Discharge Plan Triage Chief Complaint: Lower Extremity Injury ED Provider: Henry Grossman Dx/Rx/DC Orders Clinical Impression: Calcaneus fracture, left Instructions: ED Fracture, Foot Prescriptions: New hydrocodone-acetaminophen 5-325 mg tablet 2 tab PO Q6H PRN (Reason: pain) 7 Days Qty: 30 RF: 0 No Action multivitamin 1 TABLET tablet 1 tab PO DAILY RF: 0 loperamide 2 MG capsule 4 mg PO DAILY RF: 0 fluoxetine 20 MG capsule 60 mg PO DAILY RF: 0 clonidine HCl 0.1 MG tablet 0.1 mg PO QHS RF: 0 mirtazapine 7.5 MG tablet 7.5 mg PO QHS RF: 0 Calcium RF: 0 cyclobenzaprine 10 mg tablet 10 mg PO TID PRN (Reason: Muscle Spasm) Qty: 20 RF: 0 atenolol 25 mg tablet RF: 0 buspirone 10 mg tablet RF: 0 Primary Care Provider: Irma Bates Referrals: Irma Bates MD [Primary Care Provider] - Antony Riley DO [STAFF PHYSICIAN] - As soon as possible Activity Restrictions/Additional Instructions: Absolutely no weightbearing. Use crutches to ambulate. Ice and elevate your leg to decrease pain and swelling. [place] for pain. Call [facility] on Tuesday they need to get you in to be seen this week most likely they will have you see their clinical reviewer. You have fractures of your left heel bone which is the calcaneus. Keep the splint dry and clean. Disposition Disposition: Home, Self Care Discharge Date/Time: 08/02/21 00:16
--- NOTE | 2021-08-01 20:02 | RAD_ITS ---
STUDY: X-RAY - LEFT ANKLE REASON FOR EXAM: Female, 56 years old. Trauma TECHNIQUE: 3 view(s) of the ankle. COMPARISON: None. FINDINGS: Normal visualized distal tibia and fibula. Normal medial and lateral malleoli. Normal tibiotalar articulation and ankle mortise. Normal visualized talus and calcaneus. The visualized subtalar, talonavicular, calcaneocuboid and tarsal articulations are normal. Soft tissue swelling. RAD/Ankle min 3 Views IMPRESSION: Soft tissue swelling of the ankle. Electronically Signed: Tyler Kraft DO at 21:48 EDT Tel [phone], Service support ,
[2021-08-01] MEDS: oxyCODONE 5 MG Tablet PO (20:03)
--- NOTE | 2021-08-01 21:12 | CT_ITS ---
STUDY: CT LEFT ANKLE WITHOUT CONTRAST REASON FOR EXAM: Female, 56 years old. Pain trauma -- CT calcaneus RADIATION DOSAGE (If Supplied By Facility): CTDIvol = ( 15.35 ) mGy, DLP = ( 399.82 ) mGycm TECHNIQUE: Thin section transaxial imaging of the ankle was obtained, with sagittal and coronal reconstructed images. Individualized dose optimization techniques were used for this CT. COMPARISON: None. FINDINGS: Normal visualized distal tibia and fibula. Normal tibiotalar articulation and talar dome. Normal talus, navicular, and cuboid tarsal bones. There is a comminuted fracture noted involving the anterior and midportion of the calcaneus. Fracture lines are noted extending to the subtalar articular surface. Normal navicular-cuneiform, cuneiform tarsal bones and intercuneiform articulations. Normal tarsometatarsal articulations and visualized metatarsi. Soft tissue swelling more prominent medially. CT/Extremity Lower without Contra IMPRESSION: Comminuted calcaneal fracture. Electronically Signed: Tyler Kraft DO at 22:55 EDT Tel [phone], Service support ,
[2021-08-01] MEDS: Morphine 4 MG/ML Syringe IM (21:19)
[2021-08-01] MEDS: HYDROmorphone 1 MG/ML Syringe IM (22:15)
[2021-08-01 23:50] VITALS: BP 144/87; PULSE 74; RESP 16; O2SAT 97
== END 2021-08-02 00:16 | disposition home or self-care (01) ==
PROVIDERS: Emergency Provider Emergency Medicine; PCP Internal Medicine
DX: S92.002A Unspecified fracture of left calcaneus, initial encounter for closed fracture (principal); W11.XXXA Fall on and from ladder, initial encounter; Z79.899 Other long term (current) drug therapy
CPT/HCPCS: 73610; 73700; 96372; 99283

== ENCOUNTER → 2021-09-11 11:59 | Outpatient (CLI) | payer OTHER, SELFPAY ==
[2021-09-11 15:00] LABS: Absolute Lymphocyte Count 2.94 X10^3/uL (0.83-4.51); Absolute Neutrophil Count 3.5 X10^3/uL (2.0-7.7); Basophil# 0.02 X10^3/uL; Basophil% 0.3 % (0-1); Eosinophil# 0.14 X10^3/uL; Eosinophils% 1.9 % (0-5); Hematocrit 39.8 % (37-47); Lymphocyte # 2.94 X10^3/ul (0.83-4.51); Lymphocyte % 40.8 % (19-41); Mean Corp Hgb Conc 32.7 g/dL (32-36); Mean Corpuscular Hgb 26.9 pg (27.0-32.0); Mean Corpuscular Volume 82.4 fL (81-99); Mean Platelet Vol. 10.4 fl (6.2-12.0); Monocyte# 0.59 X10^3/uL; Monocyte% 8.2 % (0-10); NRBC Flagged by Analyzer 0 % (0-5); Neutrophil # 3.49 X10^3/uL (2.7-7.7); Neutrophil % 48.5 % (47-70); Platelet Count 326 K/mm3 (150-450); RBC Distribution Width CV 13.6 % (11.6-14.6); RBC Distribution Width SD 40.3 fl (35.1-43.9); Red Blood Count 4.83 M/mm3 (4.2-5.4); White Blood Count 7.2 K/mm3 (4.4-11.0)
[2021-09-11 15:18] LABS: ALB/GLOB Ratio 0.8 RATIO (0.9-2.4); AST(SGOT) 30 U/L (15-37); Alanine Aminotransfer ALT/SGPT 33 U/L (13-56); Albumin, Serum 3.6 g/dL (3.2-5.0); Alkaline Phosphatase 87 U/L (45-117); Anion Gap 7 (5-15); BUN 11 mg/dL (7-18); BUN/Creat Ratio 14.6 RATIO (10-20); Calcium,Total 9.5 mg/dL (8.5-10.1); Chloride 106 mmol/L (98-107); Creatinine, Serum 0.75 mg/dL (0.55-1.02); EST Glomerular Filtration Rate 84 mL/min (>60); Est Glom Filt Rate - Afr Amer 102 mL/min (>60); Globulin 4.3 g/dL (2.2-4.2); Glucose 92 mg/dL (74-106); Potassium 3.6 mmol/L (3.5-5.1); Protein, Total 7.9 g/dL (6.4-8.2); Sodium Level 140 mmol/L (136-145)
== END ==
LOC: MTLAB 12:00
PROVIDERS: PCP Internal Medicine; Referring Provider Internal Medicine Rheumatology; Visit Provider Internal Medicine Rheumatology
DX: M06.4 Inflammatory polyarthropathy (principal); M35.00 Sjogren syndrome, unspecified; R76.8 Other specified abnormal immunological findings in serum; K58.9 Irritable bowel syndrome, unspecified; F32.A Depression, unspecified; F98.8 Other specified behavioral and emotional disorders with onset usually occurring in childhood and adolescence; Z86.79 Personal history of other diseases of the circulatory system; Z98.84 Bariatric surgery status
CPT/HCPCS: 36415; 80053; 85025

== ENCOUNTER → 2022-10-12 | Outpatient (CLI) | payer OTHER, SELFPAY ==
[2022-10-12 09:47] LABS: Absolute Lymphocyte Count 3.98 X10^3/uL (0.83-4.51); Absolute Neutrophil Count 4.1 X10^3/uL (2.0-7.7); Basophil# 0.04 X10^3/uL; Basophil% 0.4 % (0-1); Eosinophil# 0.12 X10^3/uL; Eosinophils% 1.3 % (0-5); Hematocrit 38.6 % (37-47); Hemoglobin 13.2 g/dL (12.0-15.0); Lymphocyte # 3.98 X10^3/ul (0.83-4.51); Lymphocyte % 44.6 % (19-41); Mean Corp Hgb Conc 34.2 g/dL (32-36); Mean Corpuscular Hgb 27.3 pg (27.0-32.0); Mean Corpuscular Volume 79.9 fL (81-99); Mean Platelet Vol. 9.9 fl (6.2-12.0); Monocyte# 0.68 X10^3/uL; Monocyte% 7.6 % (0-10); NRBC Flagged by Analyzer 0 % (0-5); Neutrophil # 4.09 X10^3/uL (2.7-7.7); Neutrophil % 45.9 % (47-70); Platelet Count 287 K/mm3 (150-450); RBC Distribution Width CV 14.2 % (11.6-14.6); RBC Distribution Width SD 41.4 fl (35.1-43.9); Red Blood Count 4.83 M/mm3 (4.2-5.4); White Blood Count 8.9 K/mm3 (4.4-11.0)
[2022-10-12 10:23] LABS: ALB/GLOB Ratio 0.9 RATIO (0.9-2.4); AST(SGOT) 20 U/L (15-37); Alanine Aminotransfer ALT/SGPT 23 U/L (13-56); Albumin, Serum 3.6 g/dL (3.2-5.0); Alkaline Phosphatase 73 U/L (45-117); Anion Gap 5 (5-15); BUN 9 mg/dL (7-18); BUN/Creat Ratio 12.4 RATIO (10-20); Chloride 107 mmol/L (98-107); Cholesterol 188 mg/dL (200); Creatinine, Serum 0.73 mg/dL (0.55-1.02); EST Glomerular Filtration Rate 88 mL/min (>60); Est Glom Filt Rate - Afr Amer 106 mL/min (>60); Globulin 3.9 g/dL (2.2-4.2); Glucose 98 mg/dL (74-106); High Density Lipoprotein 50 mg/dL; Potassium 3.9 mmol/L (3.5-5.1); Protein, Total 7.5 g/dL (6.4-8.2); Sodium Level 142 mmol/L (136-145); Triglycerides 156 mg/dL; Very Low Density Lipoprotein 31 mg/dL (5-40)
[2022-10-12 14:33] LABS: Hemoglobin A1c 5.6 % (3.8-5.6)
== END | disposition home or self-care (01) ==
LOC: LAB 09:19
PROVIDERS: PCP Internal Medicine; Referring Provider Internal Medicine; Visit Provider Internal Medicine
DX: Z00.00 Encounter for general adult medical examination without abnormal findings (principal); Z13.220 Encounter for screening for lipoid disorders
CPT/HCPCS: 36415; 80053; 80061; 83036; 85025

== ENCOUNTER → 2022-11-29 | Outpatient (CLI) | payer OTHER, SELFPAY ==
[2022-11-29 13:34] LABS: Absolute Lymphocyte Count 2.99 X10^3/uL (0.83-4.51); Absolute Neutrophil Count 4.2 X10^3/uL (2.0-7.7); Basophil# 0.03 X10^3/uL; Basophil% 0.4 % (0-1); Eosinophil# 0.13 X10^3/uL; Eosinophils% 1.6 % (0-5); Hematocrit 39.9 % (37-47); Hemoglobin 13.4 g/dL (12.0-15.0); Lymphocyte # 2.99 X10^3/ul (0.83-4.51); Lymphocyte % 37.8 % (19-41); Mean Corp Hgb Conc 33.6 g/dL (32-36); Mean Corpuscular Hgb 26.7 pg (27.0-32.0); Mean Corpuscular Volume 79.6 fL (81-99); Mean Platelet Vol. 9.6 fl (6.2-12.0); Monocyte# 0.58 X10^3/uL; Monocyte% 7.3 % (0-10); NRBC Flagged by Analyzer 0 % (0-5); Neutrophil # 4.18 X10^3/uL (2.7-7.7); Neutrophil % 52.8 % (47-70); Platelet Count 352 K/mm3 (150-450); RBC Distribution Width CV 13.7 % (11.6-14.6); RBC Distribution Width SD 39.7 fl (35.1-43.9); Red Blood Count 5.01 M/mm3 (4.2-5.4); White Blood Count 7.9 K/mm3 (4.4-11.0)
[2022-11-29 14:04] LABS: Vitamin B12 418 pg/mL (211-911)
[2022-11-29 14:46] LABS: Ferritin 101 ng/mL (8-252); Iron 79 ug/dL (50-170); Iron Binding Capacity,Total 344 ug/dL (250-450)
== END | disposition home or self-care (01) ==
PROVIDERS: PCP Internal Medicine; Referring Provider Internal Medicine; Visit Provider Internal Medicine
DX: R71.8 Other abnormality of red blood cells (principal); K14.6 Glossodynia
CPT/HCPCS: 36415; 82607; 82728; 82746; 83540; 83550; 85025